=== PATIENT | female | born 1980 | race Caucasian/White ===

== ENCOUNTER → 2016-08-07 | Outpatient (CLI) | payer OTHER ==
[~2016-08-07] MED LIST: ATR25 PO; BUPRTAB51 PO; BUSP-8 PO; CHLO5CAP2 PO; FLUO20CA34 PO; FLUO20CA36 PO; FLV1 PO; FOLI1TAB7 PO; IUD PV; MULT-506 PO; MULT-589 PO; THIA100T11 PO; THM100 PO
[2016-08-10 00:50] LABS: CHLAMYDIA TRACH RNA*** NOT DETECTED (NOT DETECTED); GC (NEIS GONORRHOEAE)RNA** NOT DETECTED (NOT DETECTED)
[2016-08-13 14:06] LABS: HERPES SIMPLEX CULT SOURCE OTHER-L LABIA; HERPES SIMPLEX VIRUS CULT NOT ISOLATED (NOT ISOLATED)
== END | disposition home or self-care (01) ==
LOC: C.LABSPEC 16:14
PROVIDERS: ATTEND Physician Assistant
DX: N94.9 Unspecified condition associated with female genital organs and menstrual cycle (principal); N89.8 Other specified noninflammatory disorders of vagina; Z11.3 Encounter for screening for infections with a predominantly sexual mode of transmission

== ENCOUNTER 2016-08-14 09:51 | Inpatient (IN) | payer OTHER ==
[~2016-08-14] VITALS: Ht 167.6 cm; Wt 105.0 kg
[~2016-08-14 09:51] MED LIST changes: -ATR25 PO; -BUSP-8 PO; -FLUO20CA36 PO; -FLV1 PO; -FOLI1TAB7 PO; -MULT-506 PO; -MULT-589 PO; -THIA100T11 PO; -THM100 PO
[2016-08-14 10:50] LABS: BASO % 0.2 %; BASO ABS # 0.02 K/uL (0-0.2); COMPLETE YES; EOS % 0.1 %; HEMATOCRIT 40.9 % (37-47); IG% 0.3 %; LYMPH % 6.4 %; LYMPH ABS # 0.75 K/uL (1.2-3.4); MEAN CELL VOLUME 93.4 fL (80-100); MEAN CORPUSCULAR HEMOGLOBIN 32.6 pg (25-34); MONO % 9.5 %; NEUT % 83.5 %; PLATELET COUNT 237 K/uL (130-400); RED BLOOD COUNT 4.38 M/uL (4.2-5.4); WHITE BLOOD COUNT 11.66 K/uL (4.8-10.8)
[2016-08-14 11:14] LABS: BUN/CREATININE RATIO 7.5 (10-20); CALCIUM 9.2 mg/dl (8.5-10.1); CREATININE 0.85 mg/dl (0.60-1.20); POTASSIUM 3.5 mmol/L (3.5-5.1)
[2016-08-14 11:24] LABS: ALB/GLOB RATIO 1.4 (0.9-2); THYROID STIMULATING HORMONE 2.19 uIu/ml (0.300-4.500)
[2016-08-14 11:26] LABS: LITHIUM < 0.2 mMOL/L (0.6-1.2)
[2016-08-14] MEDS ORDERED: SODIUM CHLORIDE 0.9% 1000ML 1,000 ML IV STA (11:47)
[2016-08-14 11:59] LABS: PREG INTERNAL NEGATIVE QC NEG CLEAR BACKGROUND; PREG INTERNAL POSITIVE QC POS CONTROL LINE
[2016-08-14 12:38] LABS: BENZODIAZEPINE, URINE POS (NEG); COCAINE,URINE NEG (NEG); PHENCYCLIDINE, URINE NEG (NEG)
[2016-08-14] MEDS ORDERED: ONDANSETRON INJ 2 MG/ML 2 ML VIAL IV STA (14:23)
[2016-08-14] MEDS ORDERED: LORAZEPAM 1 MG TAB SL STA (15:50)
--- NOTE | 2016-08-14 16:21 | EMERGENCY ROOM VISIT NOTE ---
History Report prepared by Chhaya: Sneha Smith Under the Supervision of: Dr. John Cross D.O. First contact with patient: 10:27 Chief Complaint: OVERDOSE (INTENTIONAL) Stated Complaint: OVERDOSE History of Present Illness The patient is a 35 year old female who presents to the Emergency Room with complaints of a prescription drug overdose. The patient states that she is depressed and an alcoholic. She has been an alcoholic for about 11 years and believes that her alcoholism is what makes her depressed. She drinks heavily, about a fifth of liquor, every 3 days. Over the past few days, she has been taking pills that are in her house. She is not prescribed any medications. She is unsure of what the pills were or who they belonged too, although she reports that they could be her brother's. Her brother is medicated for psychiatric issues. She cannot describe what her exact intentions were of taking the pills although she states that she wants to start feeling better. She did not take the pills to try to kill herself. She took 5 of the pills a few days ago, 12 pills another day, but only 2 this morning. The patient notes that an ambulance was called this morning because her mother was concerned about her. She admits to drinking alcohol this morning. She has the Mirena and does not get her menstrual period. Denies recreational drug use. Source of History: patient Onset: [employer] Position: other (psych) Quality: other (overdose) Timing: other (episodic) Review of Systems See HPI for pertinent positives & negatives. A total of 10 systems reviewed and were otherwise negative. Past Medical & Surgical Medical Problems: (1) Alcohol addiction (2) Benign hypertension (3) Benign Hypertension (4) Calculus Of Kidney (5) Ovarian Cyst Nec/Nos Family History Diabetes mellitus FH: cancer FH: heart disease Hypertension Social History Smoking Status: Current Every Day Smoker Alcohol Use: none Drug Use: none Housing Status: lives with family Occupation Status: employed Current/Historical Medications Scheduled [Iud], 1 EA PV UD Allergies Coded Allergies: No Known Allergies (Verified , 08/14/16) Physical Exam Vital Signs Date Time Temp Pulse Resp B/P Pulse Ox O2 Delivery O2 Flow Rate FiO2 08/14/16 15:05 92 08/14/16 13:51 87 18 151/92 98 Room Air 08/14/16 11:49 90 18 125/82 98 Room Air 08/14/16 10: 36.8 98 20 139/97 99 Room Air 08/14/16 10:08 99 Physical Exam CONSTITUTIONAL/VITAL SIGNS: Reviewed / noted above. GENERAL: Non-toxic in appearance. INTEGUMENTARY: Warm, dry, and [place]. HEAD: Normocephalic. EYES: without scleral icterus or trauma. ENT/OROPHARYNX: clear and moist. LYMPHADENOPATHY/NECK: Is supple without lymphadenopathy or meningismus. RESPIRATORY: Lungs clear and equal. CARDIOVASCULAR: Regular rate and rhythm. GI/ABDOMEN: Soft and nontender. No organomegaly or pulsatile mass. No rebound or guarding. Normal bowel sounds. EXTREMITIES: Warm and well perfused. BACK: No CVA tenderness. NEUROLOGICAL: Intact without focal deficits. PSYCHIATRIC: Depressed affect. Not suicidal. MUSCULOSKELETAL: Normally developed with good muscle tone. Medical Decision & Procedures Laboratory Results 08/14/16 10:05 Red Blood Count 4.38, Mean Corpuscular Volume 93.4, Mean Corpuscular Hemoglobin 32.6, Mean Corpuscular Hemoglobin Concent 35.0, Mean Platelet Volume 10.0, Neutrophils (%) (Auto) 83.5, Lymphocytes (%) (Auto) 6.4, Monocytes (%) (Auto) 9.5, Eosinophils (%) (Auto) 0.1, Basophils (%) (Auto) 0.2, Neutrophils # (Auto) 9.73, Lymphocytes # (Auto) 0.75, Monocytes # (Auto) 1.11, Eosinophils # (Auto) 0.01, Basophils # (Auto) 0.02 08/14/16 10:05 Test 08/14/16 10:05 08/14/16 11:35 08/14/16 13:35 White Blood Count 11.66 K/uL (4.8-10.8) Red Blood Count 4.38 M/uL (4.2-5.4) Hemoglobin 14.3 g/dL (12.0-16.0) Hematocrit 40.9 % (37-47) Mean Corpuscular Volume 93.4 fL (80-100) Mean Corpuscular Hemoglobin 32.6 pg (25-34) Mean Corpuscular Hemoglobin Concent 35.0 g/dl (32-36) Platelet Count 237 K/uL (130-400) Mean Platelet Volume 10.0 fL (7.4-10.4) Neutrophils (%) (Auto) 83.5 % Lymphocytes (%) (Auto) 6.4 % Monocytes (%) (Auto) 9.5 % Eosinophils (%) (Auto) 0.1 % Basophils (%) (Auto) 0.2 % Neutrophils # (Auto) 9.73 K/uL (1.4-6.5) Lymphocytes # (Auto) 0.75 K/uL (1.2-3.4) Monocytes # (Auto) 1.11 K/uL (0.11-0.59) Eosinophils # (Auto) 0.01 K/uL (0-0.5) Basophils # (Auto) 0.02 K/uL (0-0.2) RDW Standard Deviation 44.6 fL (36.4-46.3) RDW Coefficient of Variation 13.1 % (11.5-14.5) Immature Granulocyte % (Auto) 0.3 % Immature Granulocyte # (Auto) 0.04 K/uL (0.00-0.02) Anion Gap 10.0 mmol/L (3-11) Est Creatinine Clear Calc Drug Dose 120.9 ml/min Estimated GFR () 103.6 Estimated GFR (Non- 89.4 BUN/Creatinine Ratio 7.5 (10-20) Calcium Level 9.2 mg/dl (8.5-10.1) Globulin 3.1 gm/dl (2.5-4.0) Albumin/Globulin Ratio 1.4 (0.9-2) Thyroid Stimulating Hormone (TSH) 2.190 uIu/ml (0.300-4.500) Salicylates Level mg/dl (2.8-20) Acetaminophen Level ug/ml (10-30) Mallory Level < 0.2 mMOL/L (0.6-1.2) Ethyl Alcohol mg/dL < 3.0 mg/dl (0-3) Urine Test NEG (NEG) Urine Opiates Screen NEG (NEG) Urine Methadone, Qualitative NEG (NEG) Urine Barbiturates NEG (NEG) Urine Phencyclidine (PCP) Level NEG (NEG) Ur Amphetamine/Methamphetamine NEG (NEG) MDMA (Ecstasy) Screen POS (NEG) Urine Benzodiazepines Screen POS (NEG) Urine Cocaine Metabolite NEG (NEG) Urine Marijuana (THC) NEG (NEG) Total Bilirubin 2.1 mg/dl (0.2-1) Direct Bilirubin 0.4 mg/dl (0-0.2) Aspartate Amino Transf (AST/SGOT) 14 U/L (15-37) Alanine Aminotransferase (ALT/SGPT) 14 U/L (12-78) Alkaline Phosphatase 50 U/L (45-117) Total Protein 6.6 gm/dl (6.4-8.2) Albumin 4.1 gm/dl (3.4-5.0) Laboratory results as stated above per my review. Medications Administered Medications (Trade) Dose Ordered Sig/Anju Route Start Time Stop Time Status Last Admin Dose Admin Sodium Chloride (Nss 1000ml) 1,000 ml @ 999 mls/hr Q1H1M STAT IV 08/14/16 11:47 08/14/16 12:47 DC 08/14/16 11:59 999 MLS/HR Ondansetron HCl (Zofran Inj) 4 mg NOW STAT IV 08/14/16 14:23 08/14/16 14:24 DC 08/14/16 14:46 4 MG Lorazepam (Ativan Tab) 1 mg NOW STAT SL 08/14/16 15:50 08/14/16 15:51 DC 08/14/16 15:55 1 MG ECG Indication: toxicologic Rate (beats per minute): 93 Rhythm: normal sinus Findings: no ectopy, other (no acute injury) ED Course 1029: Previous medical records were reviewed. The patient was evaluated in room A9. A complete history and physical examination was performed. 1147: Ordered NSS 1000 ml @ 999 mls/hr IV. 1423: Ordered Zofran Inj 4 mg IV. 1550: Ordered Lorazepam 1 mg SL. 1558: On reevaluation, the patient is resting comfortably. I discussed the results and findings with the patient. She verbalized agreement of the treatment plan. [facility] The patient will be evaluated for further management and care. Medical Decision Differential diagnosis: Etiologies such as mood disorder, infection, hypoglycemia, electrolyte abnormalities, cardiac sources, intracerebral event, toxicologic, neurologic, as well as others were entertained. This is a 35-year-old female who presents to the ED with a chief complaint of an overdose and depression. The patient reports that she has been drinking alcohol. She also reports that she took a couple of her brothers those. She is uncertain of what pills she took. The patient would like to be admitted for mental health reasons. She is feeling depressed. She is currently not on medication for this. Her blood work was unremarkable. Bilirubin was slightly elevated. test is negative. Toxin was positive for benzos and MDMA. Alcohol is negative. was negative. EKG shows a sinus rhythm. The patient had some mild tremors during her ED stay. She was given Ativan by mouth for this. Mental health services saw the patient and felt that she would be a good candidate for admission but felt the patient should be observed for 24 hours on the medical service first. [facility] The patient will be admitted for the observation with psychiatric consult. Consults Time Called: [phone] Consulting Physician[facility] Return[facility] Call: [phone] I discussed the case with him. The patient will be evaluated for further management. Impression Primary Impression: Depression Additional Impressions: Alcohol use Overdose Scribe Attestation The scribe's documentation has been prepared under my direction and personally reviewed by me in its entirety. I confirm that the note above accurately reflects all work, treatment, procedures, and medical decision making performed by me. Departure Information Dispostion Being Evaluated By Hospitalist Mejia Petersen M.D. (PCP) Patient Instructions [facility] Problem Qualifiers
[2016-08-14] MEDS ORDERED: CHLORDIAZEPOXIDE 25 MG CAP PO SCH (16:45)
--- NOTE | 2016-08-14 16:52 | Progress Note ---
Progress Note Date of Service Aug 14, 2016. Progress Note ATTENDING ADDENDUM care coordinated with HERSON Rees please refer to her notes for full details, I agree with her notes patient seen and examined, HERSON Rees present and witnessed entire interaction records reviewed by myself as well on exam, patient seen resting in bed, appears comfortable pleasant states she is starting to have tremors, and anxiety no hallucination denies chest pain, dyspnea, palpitations or any other symptoms expresses great enthusiasm with inpatient psych treatment VS noted and reviewed oriented x 3, not in distress, speaks in sentences with no effort nor accessory muscle use normal rate, regular rhythm, no murmurs clear breath sounds bilaterally non distended, soft, nontender no bipedal edema, erythema, warmth (+) mild hand tremors no gross neuro deficits WBC 11.6 Crea 0.85 ASSESSMENT/PLAN> 35 year old female with history of Alcoholism, presenting with depression and ingestion of unknown pills. ALCOHOL WITHDRAWAL HISTORY OF ALCOHOL ABUSE - admits to drinking liquor every 3 days last drink 2-3 days ago - denies hallucinations - start alcohol withdrawal protocol including: Librium PO taper PRN IV ativan IV fluids Thiamine DEPRESSION - evaluated by Psych - plan for inpatient psych treatment after management of alcohol withdrawal - patient agreeable to this - 1:1 observation for now INGESTION OF UNKNOWN PILLS - urine drug screen positive for MDMA, Benzo - QT mildly prolonged at 480 - monitor in Tele other diagnoses and plan of care as per HERSON Rees's notes Dillon Quinteros MD
[2016-08-14] MEDS ORDERED: MULTI-VITAMIN INFUSION INJ 10 ML, THIAMINE HCL INJ 100 MG, FoLIC ACID INJ 1 MG in SODIU... IV STA (16:55)
--- NOTE | 2016-08-14 16:58 | History and Physical ---
History & Physical Date & Time of Service: Aug 14, 2016 at 16:43 Chief Complaint: Overdose Primary Care Physician: Mejia Nuñez M.D. History of Present Illness Source: patient, clinic records, hospital records Patient seen and examined. 35 year old female with PMHx of alcohol abuse, tobacco abuse and depression presents to the ED following an intentional overdose. Patient reports she was"done with life" so she took "a lot of pills." She states she took 33 pills a few days ago but then has been taking some more every day (timeline inconsistent throughout hospital stay when speaking with different providers). She states she does not know what these pills are just that they are ones lying around her house. She states she has been drinking on top of this. She states she will drink a 5th of brien every 2-3 days. She states her last drink as 2 days ago.She states her mother was concerned and call an ambulance who brought her to the ED. She reports at this time she does not feel suicidal. She also denies homicidal ideations. She reports her first drink was at age 14 and drinking became a problem 5 or 10 years ago that she "just really likes it." She reports a stay at inpatient rehab for 22 days previously where she was on a Librium taper for withdrawal. She states she also had periods of sobriety when 5 and 10 years ago. She reports when she withdrawals she has diaphoresis, tremors and anxiety. She denies illicit drug use. She denies fevers, chills, URI symptoms, chest pain, SOB, nausea, vomiting , diarrhea, dysuria, calf pain and edema. In the ED VS are stable, wbc count is mildly elevated. Tox screen is + MDMA and + benzodiazepines. She received Ativan , IVFs and Zofran. Patient will be admitted to the internal medicine service with psychiatry consult. Past Medical/Surgical History Medical Problems: (1) Alcohol addiction Status: Chronic (2) Benign hypertension Status: Chronic Surgical Problems: (1) History of removal of ovarian cyst Status: Chronic Family History Diabetes mellitus FH: cancer FH: heart disease Hypertension Social History Smoking Status: Current Every Day Smoker Alcohol Use: heavy Drug Use: none Housing status: lives with family Occupational Status: employed Immunizations History of Influenza Vaccine: Unknown History of Tetanus Vaccine?: Unknown History of Pneumococcal: Unknown History of Hepatitis B Vaccine: Unknown Multi-Drug Resistant Organisms History of MDRO: No Allergies Coded Allergies: No Known Allergies (Verified , 08/14/16) Home Medications Scheduled [Iud], 1 EA PV UD Review of Systems See above for pertinent positives & negatives. A total of 10 systems reviewed and were otherwise negative. Physical Exam Vital Signs Date Time Temp Pulse Resp B/P Pulse Ox O2 Delivery O2 Flow Rate FiO2 08/14/16 16:24 91 18 134/88 99 Room Air 08/14/16 15:05 92 08/14/16 13:51 87 18 151/92 98 Room Air 08/14/16 11:49 90 18 125/82 98 Room Air 08/14/16 10:29 36.8 98 20 139/97 99 Room Air 08/14/16 10:08 99 General Appearance: + pertinent finding (Pleasant WD/WN 35 year old female lying in bed in NAD with mild hand tremor ) Head: normocephalic, atraumatic Eyes: PERRL, EOMI, sclerae normal ENT: hearing grossly normal, pharynx normal Neck: supple, no JVD Respiratory/Chest: chest non-tender, lungs clear, normal breath sounds, no respiratory distress, no accessory muscle use Cardiovascular: regular rate, rhythm, no edema, no gallop, no JVD, no murmur, normal peripheral pulses Abdomen/GI: normal bowel sounds, non tender, soft Back: normal inspection, no muscle spasm Extremities/Musculoskelatal: no calf tenderness, normal capillary refill, no pedal edema Neurologic/Psych: alert, oriented x 3, + pertinent finding (mild tremor, otherwise no motor or sensory deficits. Denies suicidal and homicidal ideations. ) Skin: normal color, warm/dry, no rash Lymphatic: no adenopathy Diagnostics Laboratory Results Results Past 24 Hours Test 08/14/16 10:05 08/14/16 11:35 08/14/16 13:35 08/14/16 16:30 Range/Units White Blood Count 11.66 4.8-10.8 K/uL Red Blood Count 4.38 4.2-5.4 M/uL Hemoglobin 14.3 12.0-16.0 g/dL Hematocrit 40.9 37-47 % Mean Corpuscular Volume 93.4 80-100 fL Mean Corpuscular Hemoglobin 32.6 25-34 pg Mean Corpuscular Hemoglobin Concent 35.0 32-36 g/dl Platelet Count 237 130-400 K/uL Mean Platelet Volume 10.0 7.4-10.4 fL Neutrophils (%) (Auto) 83.5 % Lymphocytes (%) (Auto) 6.4 % Monocytes (%) (Auto) 9.5 % Eosinophils (%) (Auto) 0.1 % Basophils (%) (Auto) 0.2 % Neutrophils # (Auto) 9.73 1.4-6.5 K/uL Lymphocytes # (Auto) 0.75 1.2-3.4 K/uL Monocytes # (Auto) 1.11 0.11-0.59 K/uL Eosinophils # (Auto) 0.01 0-0.5 K/uL Basophils # (Auto) 0.02 0-0.2 K/uL RDW Standard Deviation 44.6 36.4-46.3 fL RDW Coefficient of Variation 13.1 11.5-14.5 % Immature Granulocyte % (Auto) 0.3 % Immature Granulocyte # (Auto) 0.04 0.00-0.02 K/uL Sodium Level 141 136-145 mmol/L Potassium Level 3.5 3.5-5.1 mmol/L Chloride Level 106 98-107 mmol/L Carbon Dioxide Level 25 21-32 mmol/L Anion Gap 10.0 3-11 mmol/L Blood Urea Nitrogen 6 7-18 mg/dl Creatinine 0.85 0.60-1.20 mg/dl Est Creatinine Clear Calc Drug Dose 120.9 ml/min Estimated GFR () 103.6 Estimated GFR (Non- 89.4 BUN/Creatinine Ratio 7.5 10-20 Random Glucose 83 70-99 mg/dl Calcium Level 9.2 8.5-10.1 mg/dl Total Bilirubin 1.9 2.1 0.2-1 mg/dl Aspartate Amino Transf (AST/SGOT) 13 14 15-37 U/L Alanine Aminotransferase (ALT/SGPT) 18 14 12-78 U/L Alkaline Phosphatase 48 50 45-117 U/L Total Protein 7.4 6.6 6.4-8.2 gm/dl Albumin 4.3 4.1 3.4-5.0 gm/dl Globulin 3.1 2.5-4.0 gm/dl Albumin/Globulin Ratio 1.4 0.9-2 Thyroid Stimulating Hormone (TSH) 2.190 0.300-4.500 uIu/ml Salicylates Level 2.8-20 mg/dl Acetaminophen Level 10-30 ug/ml [place]ory Level < 0.2 0.6-1.2 mMOL/L Ethyl Alcohol mg/dL < 3.0 0-3 mg/dl Urine Test NEG NEG Urine Opiates Screen NEG NEG Urine Methadone, Qualitative NEG NEG Urine Barbiturates NEG NEG Urine Phencyclidine (PCP) Level NEG NEG Ur Amphetamine/Methamphetamine NEG NEG MDMA (Ecstasy) Screen POS NEG Urine Benzodiazepines Screen POS NEG Urine Cocaine Metabolite NEG NEG Urine Marijuana (THC) NEG NEG Direct Bilirubin 0.4 0-0.2 mg/dl EKG NSR incomplete RBBB, prolonged QTc 482 Impression Assessment and Plan 35 year old female presents to the ED following intentional unknown medication overdose. Also reports alcohol abuse ALCOHOL WITHDRAWAL -admit to tele -Alcohol level negative -has mild tremors at this time -Banana bag x 1 -start Librium protocol -Ativan prn withdrawal symptoms -Daily multivitamin, thiamine and folic acid supplementation -monitor closely in tele for worsening withdrawal, currently mild -seizure precautions -psychiatry consultation -CBC, PRP, Mg in AM INTENTIONAL OVERDOSE -SUICIDE ATTEMPT -Unknown medications, wanted to "be done with life" -Tox screen +MDMA, +benzodiazepine -? prolonged QTc secondary to overdose -Suicide precautions - one to one observation -psychiatry consult placed for further input PROLONGED QTc -482 -? secondary to unknown medication overdose -check Mg -monitor in tele TOBACCO ABUSE -Cessation counseling given DVT PROPHYLAXIS: SCDs CODE STATUS: FULL CODE DISPO:In my clinical judgment this beneficiary meets acute admission criteria, established by [facility], that includes being hospitalized through two midnights. Patient seen in collaboration with Dr. Quinteros VTE Prophylaxis VTE Risk Assessment Done? Y/N: Yes Risk Level: Low
[2016-08-14 18:38] VITALS: O2SAT 100
[2016-08-14] MEDS: LORAZEPAM 2 MG/ML 1 ML VIAL IV PRN (18:48)
[2016-08-14 20:00] VITALS: BP 130/71; PULSE 87; TEMP 36.8; O2SAT 99
[2016-08-14] MEDS: CHLORDIAZEPOXIDE 50MG 1ST DOSE PO SCH (20:32)
[2016-08-14] MEDS: LORAZEPAM INJ 1 MG in SYRINGE 0.5 ML IV PRN ×2 (20:33→22:12)
[2016-08-14] MEDS: SODIUM CHLORIDE 0.9% 1000ML 1,000 ML IV SCH (20:33)
[2016-08-14 21:14] VITALS: BP 130/71; PULSE 87; TEMP 36.8; Ht 167.6 cm; Wt 105.0 kg
[2016-08-14] MEDS: ACETAMINOPHEN 325 MG TAB PO PRN (22:48)
[2016-08-15] VITALS (7 sets, daily range): BP systolic 94–143; BP diastolic 56–97; PULSE 76–94; TEMP 36.6–37.1; O2SAT 97–99
[2016-08-15] MEDS: CHLORDIAZEPOXIDE 50MG 1ST DOSE PO SCH ×3 (02:17→13:44)
[2016-08-15] MEDS: SODIUM CHLORIDE 0.9% 1000ML 1,000 ML IV SCH ×3 (02:18→22:12)
[2016-08-15 05:24] LABS: HEMATOCRIT 37.7 % (37-47); MEAN CELL VOLUME 92.4 fL (80-100); MEAN CORPUSCULAR HEMOGLOBIN 31.9 pg (25-34); MEAN CORPUSCULAR HGB CONC 34.5 g/dl (32-36); MEAN PLATELET VOLUME 9.9 fL (7.4-10.4); PLATELET COUNT 172 K/uL (130-400); RED BLOOD COUNT 4.08 M/uL (4.2-5.4); WHITE BLOOD COUNT 7.86 K/uL (4.8-10.8)
[2016-08-15] MEDS: LORAZEPAM INJ 1 MG in SYRINGE 0.5 ML IV PRN ×2 (05:45→22:24)
[2016-08-15 05:50] LABS: BUN/CREATININE RATIO 6.9 (10-20); CALCIUM 8.1 mg/dl (8.5-10.1); CREATININE 0.76 mg/dl (0.60-1.20); MAGNESIUM 2.3 mg/dl (1.8-2.4); POTASSIUM 3.5 mmol/L (3.5-5.1)
[2016-08-15] MEDS: MULTIVITAMIN TAB PO SCH (07:53)
[2016-08-15] MEDS: THIAMINE HCL 100 MG TAB PO SCH (07:53)
[2016-08-15] MEDS ORDERED: DOCUSATE SODIUM 100 MG CAP PO ONE (10:00)
[2016-08-15] MEDS ORDERED: GABAPENTIN 600 MG TAB PO SCH (10:00)
[2016-08-15] MEDS ORDERED: GABAPENTIN 1200MG LOADING DOSE PO SCH (11:00)
--- NOTE | 2016-08-15 12:13 | CONSULTATION REPORT ---
DATE OF CONSULTATION: 08/15/2016 DATE OF CONSULTATION: 08/15/2016. IDENTIFYING DATA: Kaleigh Hanley is a 35-year-old woman from [place], [place], who is currently admitted to the medical floor with alcohol withdrawal syndrome, depression, status post overdose attempt. Information is gathered from the patient and considered to be reliable. CHIEF COMPLAINT: "I tried to kill myself." HISTORY OF PRESENT ILLNESS: Kaleigh Hanley is a 35-year-old woman who is currently under a great deal of stress. She is in the process of going through the divorce and as part of the picture had to sell her home and move in with her parents 6 months ago. She has 2 sons, ages 5 and 10. She indicates that living with them has been "terrible" and admits that her drinking has been part of the problem. She says that her parents drink and therefore alcohol is available in their home which makes it difficult for her to stop. She says that she has been intermittently suicidal, but generally only when she is drinking. She admits that she overdosed on unknown pills last week and again taking 33 pills of Wellbutrin and other unknown pills several days ago and continuing to take more in subsequent days. She admits that her drinking has been a problem, consuming a fifth of brien every 2-3 days. Today, she says that she continues to feel depressed, but not actively suicidal. She reports that her sleep recently has been impaired getting only 4 hours of sleep per night, being up and down through most of the night. Her appetite has been down, but she admits to substituting alcohol for her calories and ate virtually nothing for the 4 days prior to admission. She reports a pattern of chronic anxiety with occasional panic attacks that can be triggered by arguing with her mother or "anything." She does not normally experience hallucinations of any time, but since being without alcohol she is having visual disturbances, twilight in nature in which she wakes up from resting and believes that she is smoking a cigarette or sees her boyfriend Sean in the room. She denies any history of self-injurious behaviors. She denies any history of eating disordered behaviors. She denies any discrete episodes of euphoric mood, sleeplessness or pleasure seeking behaviors that would be congruent with bipolar disorder. CURRENT MEDICATIONS: 1. Neurontin protocol for withdrawal. 2. Librium protocol for withdrawal. 3. Senokot 8.6 mg q.a.m. 4. Colace 100 mg b.i.d. 5. Folic acid 1 mg q.a.m. 6. Thiamine 100 mg q.a.m. 7. Multivite 1 tab q.a.m. PAST PSYCHIATRIC HISTORY: The patient denies that she has ever seen a psychiatric professional. She has never been hospitalized for mental health reasons. Prior to last week she had not made a suicide attempt. PRIOR MEDICATION TRIALS: 1. Wellbutrin. 2. Prozac. ACCESS TO GUNS: Denies. ALLERGIES: NKDA. PAST MEDICAL HISTORY: 1. Benign hypertension. 2. Denies history for head injury or seizures. FAMILY HISTORY: Positive for brother with schizophrenia, mother and father with alcohol abuse issues. There is no family history for suicide. Medically, there is positive family history for heart disease, hypertension, diabetes, and cancer. SUBSTANCE USE HISTORY: In the last year, the patient endorses heavy drinking as much as a fifth of alcohol every 3 days, usually brien. She has been in rehab before at [facility] 2 years ago. She stayed for 22 days and was able to maintain sobriety for 3 weeks after discharge. She denies any legal consequences as a result of substances. She denies the use of street drugs now or at any point in the past. PERSONAL HISTORY: The patient currently resides with her parents in [place]. She has 1 brother. 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 She is a high school graduate and has some education at [employer]. She is and recently had a breakup with a boyfriend. She has 2 children, ages 5-10. She denies legal concerns. Psychological trauma history is denied. MENTAL STATUS EXAMINATION: A 35-year-old woman with short dark hair, dressed in hospital gown, lying in her hospital bed. She is awakened from sleep for the interview and is alert and cooperative. Eye contact is good. Motor behavior is unremarkable, no visible tremors. Speech is of normal rate, volume, and tone. Affect is flat. Mood is depressed. Thought process is organized and goal directed. She denies thought disorder in the form of delusions, but is having withdrawal seizures including visual images of seeing her boyfriend in the room. Today, she is fully oriented. Her memory functions appear to be intact per conversation. Fund of knowledge is intact. Intelligence is estimated to be average. Insight and judgment are currently impaired. VITAL SIGNS: Temp 36.9, pulse 89, respirations 20, blood pressure 94/56, pulse ox 99% on room air. LABORATORIES: 1. CBC -- notable for low RBCs 4.08. 2. Chem profile -- notable for chloride 110, calcium low at 8.1, total bilirubin elevated at 2.2. Direct bilirubin elevated at 0.3. 3. TSH -- within normal limits at 2.190. 4. Toxicology -- positive for benzodiazepines and MDMA which is usually a false positive. Alcohol was negative. 5. Urine test -- negative. REVIEW OF SYSTEMS: Positive for complaints of visual disturbances, fatigue, recent tremors, depression. PHYSICAL EXAMINATION: As per Dary Rees PA-C. IMPRESSION: A 35-year-old woman admitted to the hospital following an overdose attempt and alcohol withdrawal. She has not received any ____ mental health treatment in the past, although has been in rehab 2 years ago for her alcohol dependence. Our primary goal is to get her medically cleared from her alcohol withdrawal. I agree with the use of Neurontin and Librium protocol with AWSS protocol for alcohol withdrawal. I have recommended that she receive inpatient mental health treatment when medically cleared and at this point she is willing to do that, although does hedge at some times saying she would rather pursue outpatient because of the need to be with her children. We will continue to address this with her. There is a backup 302 petitioners statement on the chart that could be used in the event she refuses voluntary treatment. We will not recommend any antidepressants at this point until she has had a chance to clear medically. The patient should not be allowed to leave against medical advice without being evaluated by psychiatry first. DIAGNOSES: 1. Alcohol dependence. 2. Depressive disorder, not otherwise specified. 3. Hypertension. PLAN: Has been reviewed with Dr. Selam Yepez. 1. Alcohol dependence and withdrawal. -- Agree with AWSS protocol using gabapentin and Librium protocol. -- Will likely recommend inpatient rehab after psychiatrically stable. 2. Depressive disorder, not otherwise specified. Differential includes substance induced mood disorder, major depressive disorder. -- Will hold on medication recommendations until medically cleared. -- Recommend inpatient mental health treatment. -- The patient should not be allowed to leave against medical advice without being seen by psychiatry. 3. Hypertension. -- As per the medical team. We thank you for allowing us to participate in this woman's care.
[2016-08-15] MEDS: LORAZEPAM 2 MG/ML 1 ML VIAL IV PRN ×2 (13:38→18:48)
[2016-08-15] MEDS: ACETAMINOPHEN 325 MG TAB PO PRN (13:38)
[2016-08-15] MEDS: GABAPENTIN 600MG Q6H DOSE PO SCH ×2 (16:23→21:15)
--- NOTE | 2016-08-15 17:00 | Progress Note ---
Subjective Date of Service: Aug 15, 2016. Subjective Pt evaluation today including: conversation w/ patient, physical exam, lab review, review of studies, conversation w/ contamination consultant, review of inpatient medication list Saw/examined the patient in room 287 She states that she intentionally overdose on multiple medications - unknown which medications though it did include Wellbutrin Tells me she is supposed to take Wellbutrin, Prozac and Librium at home, but does not knows she has an alcohol abuse problem Wants to go to [address] [place] [address] mental health unit to find help for depression, suicidal ideation, and alcohol/drug abuse currently feels fine - was hallucinating overnight, but no longer; no anxiety, tachycardia, etc. Problem List Medical Problems: (1) Alcohol use Status: Acute (2) Depression Status: Acute (3) Hand laceration Status: Acute (4) Multiple contusions Status: Acute (5) Overdose Status: Acute Review of Systems Respiratory: No shortness of breath Cardiac: No chest pain Psychiatric: + anxiety, + depression symptoms, + insomnia, + problem reported ( hallucinations), + see HPI, + substance abuse Medications Current Inpatient Medications Medications (Trade) Dose Ordered Sig/Anju Route Start Time Stop Time Status Last Admin Dose Admin Acetaminophen (Tylenol Tab) 650 mg Q4H PRN PO 08/14/16 16:30 09/13/16 16:29 08/15/16 13:38 650 MG Folic Acid (Folvite Tab) 1 mg QAM PO 08/15/16 09:00 09/14/16 08:59 08/15/16 07:53 1 MG Thiamine HCl (Vitamin B-1 Tab) 100 mg QAM PO 08/15/16 09:00 09/14/16 08:59 08/15/16 07:53 100 MG Multivitamins 1 tab 1 tab QAM PO 08/15/16 09:00 09/14/16 08:59 08/15/16 07:53 1 TAB Sodium Chloride (Nss 1000ml) 1,000 ml @ 100 mls/hr Q10H IV 08/14/16 16:39 09/13/16 16:38 08/15/16 12:52 100 MLS/HR Lorazepam (Ativan Inj) 1 mg Q1H PRN IV 08/14/16 16:45 09/13/16 16:44 08/15/16 13:38 1 MG Chlordiazepoxide (Librium Cap) 50 mg Q8H PO 08/15/16 22:00 08/16/16 14:01 Chlordiazepoxide (Librium Cap) 25 mg Q8H PO 08/16/16 22:00 08/17/16 14:01 Chlordiazepoxide 10 mg 10 mg Q12H PO 08/18/16 06:00 08/18/16 18:01 Lorazepam/Syringe (Ativan Inj/ Syringe) 1 ml @ 1 mls/min Q1H PRN IV 08/14/16 20:30 09/13/16 20:29 08/15/16 05:45 1 MLS/MIN Docusate Sodium (coLACE CAP) 100 mg BID PO 08/15/16 21:00 09/14/16 20:59 Senna (Senokot Tab) 8.6 mg QAM PO 08/16/16 09:00 09/15/16 08:59 Gabapentin (Neurontin Tab) 600 mg Q6H PO 08/15/16 16:00 08/15/16 22:01 08/15/16 16:23 600 MG Gabapentin (Neurontin Tab) 600 mg Q8H PO 08/16/16 06:00 08/16/16 22:01 Gabapentin (Neurontin Tab) 600 mg Q12H PO 08/17/16 09:00 08/17/16 21:01 Gabapentin (Neurontin Tab) 600 mg Q24H PO 08/18/16 09:00 08/18/16 09:01 Objective Vital Signs Date Time Temp Pulse Resp B/P Pulse Ox O2 Delivery O2 Flow Rate FiO2 08/15/16 14:58 37.1 94 18 143/97 98 Room Air 08/15/16 12:00 Room Air 08/15/16 11:57 36.6 77 18 136/88 99 Room Air 08/15/16 08:00 Room Air 08/15/16 07:57 36.9 89 20 94/56 99 Room Air 08/15/16 04:00 Room Air 08/15/16 04:00 36.9 86 18 127/84 99 Room Air 08/15/16 00:33 36.9 76 20 128/84 99 Room Air 08/15/16 00:22 Room Air 08/14/16 21:14 36.8 87 18 130/71 Room Air 08/14/16 20:00 36.8 87 18 130/71 99 Room Air 08/14/16 18:38 94 18 131/86 100 Room Air Physical Exam General Appearance: no apparent distress, + pertinent finding (mild tremulousness at baseline) Respiratory/Chest: lungs clear, normal breath sounds, no respiratory distress, no accessory muscle use Cardiovascular: regular rate, rhythm, no edema, no murmur Abdomen: normal bowel sounds, non tender, soft Extremities: normal inspection, no pedal edema Laboratory Results Last 24 Hours Test 08/15/16 04:46 White Blood Count 7.86 K/uL Red Blood Count 4.08 M/uL Hemoglobin 13.0 g/dL Hematocrit 37.7 % Mean Corpuscular Volume 92.4 fL Mean Corpuscular Hemoglobin 31.9 pg Mean Corpuscular Hemoglobin Concent 34.5 g/dl RDW Standard Deviation 43.6 fL RDW Coefficient of Variation 13.0 % Platelet Count 172 K/uL Mean Platelet Volume 9.9 fL Sodium Level 142 mmol/L Potassium Level 3.5 mmol/L Chloride Level 110 mmol/L Carbon Dioxide Level 24 mmol/L Anion Gap 8.0 mmol/L Blood Urea Nitrogen 5 mg/dl Creatinine 0.76 mg/dl Est Creatinine Clear Calc Drug Dose 128.3 ml/min Estimated GFR () 118.6 Estimated GFR (Non- 102.3 BUN/Creatinine Ratio 6.9 Random Glucose 91 mg/dl Calcium Level 8.1 mg/dl Magnesium Level 2.3 mg/dl Total Bilirubin 2.2 mg/dl Direct Bilirubin 0.3 mg/dl Assessment and Plan This is a 35 year old female with PMH of depression, alcohol and tobacco abuse presents with intentional overdose Intentional Overdose Suicidal Attempt patient intentionally took multiple pills; unknown which ones patient is supposed to take Wellbutrin, Prozac - but does not take these is willing to start medications for depression plan is for her to go to the Mental Health Unit after she is medically stable EKG obtained this morning shows a QTc ~ 450; improving from previous one Alcohol Abuse; Withdrawal Symptoms monitoring for DTs currently on Librium protocol, appreciate psych input started gabapentin as well Ativan PRN for anxiety, withdrawal symptoms +hallucinations on the night of 08/14; none since DVT ppx SCDs FULL CODE
[2016-08-15] MEDS: DOCUSATE SODIUM 100 MG CAP PO SCH (21:15)
[2016-08-15] MEDS: CHLORDIAZEPOXIDE 50MG Q8H DOSE PO SCH (21:16)
[2016-08-16] MEDS: LORAZEPAM 2 MG/ML 1 ML VIAL IV PRN ×3 (02:09→11:03)
[2016-08-16] MEDS: GABAPENTIN 600MG Q8H DOSE PO SCH ×2 (05:33→14:52)
[2016-08-16] MEDS: CHLORDIAZEPOXIDE 50MG Q8H DOSE PO SCH ×2 (05:33→15:02)
[2016-08-16 07:31] VITALS: BP 123/79; PULSE 68; TEMP 36.4; O2SAT 98
[2016-08-16] MEDS: MULTIVITAMIN TAB PO SCH (07:53)
[2016-08-16] MEDS: THIAMINE HCL 100 MG TAB PO SCH (07:54)
[2016-08-16] MEDS: SODIUM CHLORIDE 0.9% 1000ML 1,000 ML IV SCH (07:55)
[2016-08-16 07:57] LABS: HEMATOCRIT 38.8 % (37-47); MEAN CORPUSCULAR HEMOGLOBIN 31.7 pg (25-34); MEAN PLATELET VOLUME 10.1 fL (7.4-10.4); PLATELET COUNT 166 K/uL (130-400); RED BLOOD COUNT 4.17 M/uL (4.2-5.4); WHITE BLOOD COUNT 5.97 K/uL (4.8-10.8)
[2016-08-16 08:28] LABS: BUN/CREATININE RATIO 5.8 (10-20); CALCIUM 8.6 mg/dl (8.5-10.1); CREATININE 0.81 mg/dl (0.60-1.20); MAGNESIUM 2.1 mg/dl (1.8-2.4); POTASSIUM 3.8 mmol/L (3.5-5.1)
[2016-08-16] MEDS: DOCUSATE SODIUM 100 MG CAP PO SCH (08:44)
[2016-08-16] MEDS ORDERED: SENNA 8.6 MG TAB PO SCH (09:00)
[2016-08-16 11:27] VITALS: BP 132/86; PULSE 86; TEMP 36.8; O2SAT 99
[2016-08-16 14:41] VITALS: BP 122/82; PULSE 89; TEMP 36.9; O2SAT 97
--- NOTE | 2016-08-16 15:04 | Psychiatric Progress Notes ---
Psychiatric Progress Note Date of Service Aug 16, 2016. Notes ID: Patient reviewed with liaison nurse. Initial consult by KALA Aguilera reviewed. CC: "I still feel a bit funny" HPI: patient describes illusions related to her medication, misperceiving sounds going on around her as her mother cooking breakfast for example. She was able to eat breakfast and is ambulating to the bathroom. Tremors are minimal and decreased. ROS: tremor improved, gait improving MSE: alert, depressed, affect calm currently, thoughts organized, denies SI currently on medical floor but clearly states suicide attempt and not able to safety contract for discharge Imp: as per initial consult Plan: 201 when medically cleared (patient remains agreeable), 3S if bed still available. Patient reviewed with Dr. Cloud. VSS.
--- NOTE | 2016-08-16 15:14 | Progress Note ---
Subjective Date of Service: Aug 16, 2016. Subjective Pt evaluation today including: conversation w/ patient, physical exam, lab review, review of studies, review of inpatient medication list Saw/examined the patient in room 287 No problems/issues to note; +/- hallucinations at night, though doing fine now, no acute anxiety/distress Problem List Medical Problems: (1) Alcohol use Status: Acute (2) Depression Status: Acute (3) Hand laceration Status: Acute (4) Multiple contusions Status: Acute (5) Overdose Status: Acute Review of Systems Neurologic: No balance problems Psychiatric: + substance abuse, No anxiety, No depression symptoms, No insomnia Medications Current Inpatient Medications Medications (Trade) Dose Ordered Sig/Anju Route Start Time Stop Time Status Last Admin Dose Admin Acetaminophen (Tylenol Tab) 650 mg Q4H PRN PO 08/14/16 16:30 09/13/16 16:29 08/15/16 13:38 650 MG Folic Acid (Folvite Tab) 1 mg QAM PO 08/15/16 09:00 09/14/16 08:59 08/16/16 07:54 1 MG Thiamine HCl (Vitamin B-1 Tab) 100 mg QAM PO 08/15/16 09:00 09/14/16 08:59 08/16/16 07:54 100 MG Multivitamins 1 tab 1 tab QAM PO 08/15/16 09:00 09/14/16 08:59 08/16/16 07:53 1 TAB Sodium Chloride (Nss 1000ml) 1,000 ml @ 100 mls/hr Q10H IV 08/14/16 16:39 09/13/16 16:38 08/16/16 07:55 100 MLS/HR Lorazepam (Ativan Inj) 1 mg Q1H PRN IV 08/14/16 16:45 09/13/16 16:44 08/16/16 11:03 1 MG Chlordiazepoxide (Librium Cap) 25 mg Q8H PO 08/16/16 22:00 08/17/16 14:01 Chlordiazepoxide 10 mg 10 mg Q12H PO 08/18/16 06:00 08/18/16 18:01 Lorazepam/Syringe (Ativan Inj/ Syringe) 1 ml @ 1 mls/min Q1H PRN IV 08/14/16 20:30 09/13/16 20:29 08/15/16 22:24 1 MLS/MIN Docusate Sodium (coLACE CAP) 100 mg BID PO 08/15/16 21:00 09/14/16 20:59 08/16/16 08:44 100 MG Senna (Senokot Tab) 8.6 mg QAM PO 08/16/16 09:00 09/15/16 08:59 08/16/16 07:55 8.6 MG Gabapentin (Neurontin Tab) 600 mg Q8H PO 08/16/16 06:00 08/16/16 22:01 08/16/16 14:52 600 MG Gabapentin (Neurontin Tab) 600 mg Q12H PO 08/17/16 09:00 08/17/16 21:01 Gabapentin (Neurontin Tab) 600 mg Q24H PO 08/18/16 09:00 08/18/16 09:01 Objective Vital Signs Date Time Temp Pulse Resp B/P Pulse Ox O2 Delivery O2 Flow Rate FiO2 08/16/16 14:41 36.9 89 20 122/82 97 Room Air 08/16/16 11:27 36.8 86 18 132/86 99 Room Air 08/16/16 08:00 Room Air 08/16/16 07:31 36.4 68 20 123/79 98 Room Air 08/16/16 04:00 Room Air 08/16/16 00:00 Room Air 08/15/16 23:02 36.9 78 20 115/76 98 Room Air 08/15/16 20:00 Room Air 08/15/16 19:03 36.7 84 20 128/82 97 Room Air 08/15/16 16:00 Room Air Physical Exam General Appearance: no apparent distress Respiratory/Chest: lungs clear, normal breath sounds, no respiratory distress, no accessory muscle use Cardiovascular: regular rate, rhythm, no edema, no murmur Neurologic/Psychiatric: no motor/sensory deficits, alert, normal mood/affect Laboratory Results Last 24 Hours Test 08/16/16 07:45 White Blood Count 5.97 K/uL Red Blood Count 4.17 M/uL Hemoglobin 13.2 g/dL Hematocrit 38.8 % Mean Corpuscular Volume 93.0 fL Mean Corpuscular Hemoglobin 31.7 pg Mean Corpuscular Hemoglobin Concent 34.0 g/dl RDW Standard Deviation 44.2 fL RDW Coefficient of Variation 13.0 % Platelet Count 166 K/uL Mean Platelet Volume 10.1 fL Sodium Level 142 mmol/L Potassium Level 3.8 mmol/L Chloride Level 109 mmol/L Carbon Dioxide Level 25 mmol/L Anion Gap 8.0 mmol/L Blood Urea Nitrogen 5 mg/dl Creatinine 0.81 mg/dl Est Creatinine Clear Calc Drug Dose 119.8 ml/min Estimated GFR () 109.8 Estimated GFR (Non- 94.8 BUN/Creatinine Ratio 5.8 Random Glucose 109 mg/dl Calcium Level 8.6 mg/dl Magnesium Level 2.1 mg/dl Assessment and Plan This is a 35 year old female with PMH of depression, alcohol and tobacco abuse presents with intentional overdose Intentional Overdose Suicidal Attempt 08/16 patient is stable for discharge today to [facility]HU 08/15 patient intentionally took multiple pills; unknown which ones patient is supposed to take Wellbutrin, Prozac - but does not take these is willing to start medications for depression plan is for her to go to the Mental Health Unit after she is medically stable EKG obtained this morning shows a QTc ~ 450; improving from previous one Alcohol Abuse; Withdrawal Symptoms monitoring for DTs currently on Librium protocol, appreciate psych input started gabapentin as well Ativan PRN for anxiety, withdrawal symptoms +hallucinations on the night of 08/14; none since DVT ppx SCDs FULL CODE
[2016-08-16] MEDS ORDERED: FLV1 PO (15:17)
[2016-08-16] MEDS ORDERED: MULT-589 PO (15:17)
[2016-08-16] MEDS ORDERED: THM100 PO (15:17)
--- NOTE | 2016-08-16 15:19 | Discharge Instructions ---
Discharge Instructions Date of Service Aug 16, 2016. Admission Reason for Admission: Alcohol Withdrawal, Overdose Discharge Discharge Diagnosis / Problem: Intentional Drug Overdose, Suicidal Attempt, Alcohol Abuse/Withdrawal Discharge Goals Goal(s): Decrease discomfort, Improve function Activity Recommendations Activity Limitations: resume your previous activity . Instructions / Follow-Up Instructions / Follow-Up To be discharged to mental health unit Continue Thiamine, Folate, Multivitamin Gabapentin protocol for alcohol withdrawal symptoms Current Hospital Diet Patient's current hospital diet: Regular Diet Discharge Diet Recommended Diet: Regular Diet Pending Studies Studies pending at discharge: no Medical Emergencies . Who to Call and When: Medical Emergencies: If at any time you feel your situation is an emergency, please call 911 immediately. . Non-Emergent Contact Non-Emergency issues call your: Primary Care Provider . . "Provider Documentation" section prepared by Stoo Cloud. VTE Core Measure Inpt VTE Proph given/why not?: SCD's
--- NOTE | 2016-08-16 15:25 | Discharge Summary ---
Discharge Summary Date of Service Aug 16, 2016. Discharge Summary Admission Date: Aug 14, 2016 at 16:29 Discharge Date: Aug 16, 2016 Discharge Disposition: Acute care facility Principal Diagnosis: Intentional Drug Overdose Suicide Attempt Alcohol Abuse/Withdrawal Symptoms Medication Reconciliation New Medications: Folic Acid (Folic Acid) 1 Mg Tab 1 MG PO QAM for 30 Days, #30 TAB Multivitamins (Daily Bharat) 1 Tab Tab 1 TAB PO QAM for 30 Days, #30 TAB Thiamine HCl (Vitamin B-1) 100 Mg Tab 100 MG PO QAM for 30 Days, #30 TAB Continued Medications: [Iud] () 1 EA PV UD Admission Information HPI (per Admitting provider): Patient seen and examined. 35 year old female with PMHx of alcohol abuse, tobacco abuse and depression presents to the ED following an intentional overdose. Patient reports she was"done with life" so she took "a lot of pills." She states she took 33 pills a few days ago but then has been taking some more every day (timeline inconsistent throughout hospital stay when speaking with different providers). She states she does not know what these pills are just that they are ones lying around her house. She states she has been drinking on top of this. She states she will drink a 5th of brien every 2-3 days. She states her last drink as 2 days ago.She states her mother was concerned and call an ambulance who brought her to the ED. She reports at this time she does not feel suicidal. She also denies homicidal ideations. She reports her first drink was at age 14 and drinking became a problem 5 or 10 years ago that she "just really likes it." She reports a stay at inpatient rehab for 22 days previously where she was on a Librium taper for withdrawal. She states she also had periods of sobriety when 5 and 10 years ago. She reports when she withdrawals she has diaphoresis, tremors and anxiety. She denies illicit drug use. She denies fevers, chills, URI symptoms, chest pain, SOB, nausea, vomiting , diarrhea, dysuria, calf pain and edema. In the ED VS are stable, wbc count is mildly elevated. Tox screen is + MDMA and + benzodiazepines. She received Ativan , IVFs and Zofran. Patient will be admitted to the internal medicine service with psychiatry consult. Physical Exam (per Admitting): General Appearance: + pertinent finding (Pleasant WD/WN 35 year old female lying in bed in NAD with mild hand tremor ) Head: normocephalic, atraumatic Eyes: PERRL, EOMI, sclerae normal ENT: hearing grossly normal, pharynx normal Neck: supple, no JVD Respiratory/Chest: chest non-tender, lungs clear, normal breath sounds, no respiratory distress, no accessory muscle use Cardiovascular: regular rate, rhythm, no edema, no gallop, no JVD, no murmur , normal peripheral pulses Abdomen/GI: normal bowel sounds, non tender, soft Back: normal inspection, no muscle spasm Extremities/Musculoskelatal: no calf tenderness, normal capillary refill, no pedal edema Neurologic/Psych: alert, oriented x 3, + pertinent finding (mild tremor, otherwise no motor or sensory deficits. Denies suicidal and homicidal ideations. ) Skin: normal color, warm/dry, no rash Lymphatic: no adenopathy Hospital Course This is a 35 year old female with PMH of depression, alcohol and tobacco abuse presents with intentional overdose Intentional Overdose Suicidal Attempt 08/16 patient is stable for discharge today to [facility]HU 08/15 patient intentionally took multiple pills; unknown which ones patient is supposed to take Wellbutrin, Prozac - but does not take these is willing to start medications for depression plan is for her to go to the Mental Health Unit after she is medically stable EKG obtained this morning shows a QTc ~ 450; improving from previous one Alcohol Abuse; Withdrawal Symptoms monitoring for DTs currently on Librium protocol, appreciate psych input started gabapentin as well Ativan PRN for anxiety, withdrawal symptoms +hallucinations on the night of 08/14; none since DVT ppx SCDs FULL CODE Total time spent on discharge = 25 minutes This includes examination of the patient, discharge planning, medication reconciliation, and communication with other providers. Discharge Instructions To be discharged to mental health unit Continue Thiamine, Folate, Multivitamin Gabapentin protocol for alcohol withdrawal symptoms
[2016-08-16 15:51] VITALS: BP 122/82; PULSE 89; TEMP 36.9; O2SAT 97
[2016-08-16] MEDS ORDERED: THIA100T11 PO (18:03)
[2016-08-16] MEDS ORDERED: MULT-506 PO (18:03)
[2016-08-16] MEDS ORDERED: FOLI1TAB7 PO (18:03)
[2016-08-16] MEDS ORDERED: BUPRTAB51 PO (18:05)
[2016-08-16] MEDS ORDERED: CHLORDIAZEPOXIDE 25MG Q8H DOSE PO SCH (22:00)
[2016-08-17] MEDS ORDERED: GABAPENTIN 600MG Q12H DOSE PO SCH (09:00)
[2016-08-18] MEDS ORDERED: CHLORDIAZEPOXIDE 10MG Q12H DOSE PO SCH (06:00)
[2016-08-18] MEDS ORDERED: GABAPENTIN 600MG X1 DOSE PO SCH (09:00)
[2016-08-19 11:38] LABS: HYDROXYETHYLFLURAZEPAM CONF NEGATIVE NG/ML (CUTOFF=50); HYDROXYMIDAZOLAM NEGATIVE NG/ML (CUTOFF=50); HYDROXYTRIAZOLAM CONF NEGATIVE NG/ML (CUTOFF=50); TEMAZEPAM CONF NEGATIVE NG/ML (CUTOFF=50)
== END 2016-08-16 17:32 | DRG 881 ==
LOC: ENRESERVDT → ENRESERVTM → EDBD 09:51 → C.EDA 09:52 → C.MED 16:29
PROVIDERS: ADMIT Internal Medicine; ATTEND Family Medicine
DX: F32.9 Major depressive disorder, single episode, unspecified (principal); F10.239 Alcohol dependence with withdrawal, unspecified; R45.851 Suicidal ideations; T50.902A Poisoning by unspecified drugs, medicaments and biological substances, intentional self-harm, initial encounter; F17.210 Nicotine dependence, cigarettes, uncomplicated; I10 Essential (primary) hypertension; I45.81 Long QT syndrome

== ENCOUNTER 2016-08-16 17:40 | Inpatient (IN) | payer OTHER ==
[~2016-08-16] VITALS: Ht 175.3 cm; Wt 105.0 kg
[~2016-08-16 17:40] MED LIST changes: -BUPRTAB51 PO; -CHLO5CAP2 PO; -FLUO20CA34 PO; +FLV1 PO; +MULT-589 PO; +THM100 PO
[2016-08-16] MEDS ORDERED: FOLI1TAB7 PO (18:03)
[2016-08-16] MEDS ORDERED: MULT-506 PO (18:03)
[2016-08-16] MEDS ORDERED: THIA100T11 PO (18:03)
[2016-08-16] MEDS ORDERED: BUPRTAB51 PO (18:05)
[2016-08-16 18:14] VITALS: BP 124/82; PULSE 87; TEMP 36.4; Ht 175.3 cm; Wt 105.0 kg
[2016-08-16] MEDS ORDERED: BISMUTH SUBSALICYLATE PER ML OMNICELL CHARGE PO PRN (18:30)
[2016-08-16] MEDS ORDERED: ACETAMINOPHEN 325 MG TAB PO PRN (18:30)
[2016-08-16] MEDS ORDERED: SODIUM CHLORIDE 0.65% NA SOLN 45 ML (OCEAN) PRN (18:30)
[2016-08-16] MEDS ORDERED: hydrOXYzine HCL 25 MG TAB PO PRN (18:30)
[2016-08-16] MEDS ORDERED: ALUMINUM/MAGNESIUM SUSP 30 ML UDC PO PRN (18:30)
[2016-08-16] MEDS ORDERED: GABAPENTIN 800 MG TAB PO SCH (19:15)
[2016-08-16] MEDS ORDERED: LORAZEPAM 1 MG TAB PO PRN (19:15)
[2016-08-16 19:57] VITALS: BP 137/89; PULSE 89; TEMP 36.7
[2016-08-16] MEDS ORDERED: NICOTINE 7 MG/24 HR TDSY TD ONE (21:00)
[2016-08-16] MEDS ORDERED: GABAPENTIN 400 MG CAP PO SCH (22:00)
[2016-08-16] MEDS: hydrOXYzine HCL 25 MG TAB PO PRN (22:38)
[2016-08-17 00:32] VITALS: BP 124/80; PULSE 72; TEMP 36.7
[2016-08-17 06:50] VITALS: BP_SYST 129; BP_SYST 131; BP_DIAS 87; BP_DIAS 88; PULSE 78; PULSE 91; TEMP 36.5
[2016-08-17 08:57] VITALS: BP 116/75; PULSE 69; TEMP 36.8
[2016-08-17] MEDS ORDERED: BuPROPion XL 300 MG TABCR PO SCH (09:00)
[2016-08-17] MEDS: MULTIVITAMIN TAB PO SCH (09:15)
[2016-08-17] MEDS: GABAPENTIN 400 MG CAP PO SCH ×2 (09:15→21:19)
[2016-08-17] MEDS: THIAMINE HCL 100 MG TAB PO SCH (09:15)
[2016-08-17] MEDS: NICOTINE 7 MG/24 HR TDSY TD SCH (09:20)
--- NOTE | 2016-08-17 10:33 | Psychiatric History & Physical ---
History Date of Service Aug 17, 2016. Identifying Data Kaleigh Hanley is a 35-year-old female who currently lives in [place]. Kaleigh Hanley was admitted on a 201 voluntary commitment. Patient is admitted from transfer from the medical floor following an OD attempt and medical management of ETOH withdrawal. Chief Complaint "I'm ready for this to work". History of Present Illness Kaleigh presented to the ED on 08/14/16 after taking 33 Wellbutrin over the course of a few day and "other pills" as a suicide attempt. Stressors include going through a divorce and having to move back into her parents' home with her 2 sons about 6 months ago. She admits that her drinking has created issues in a variety of her relationships and is ready to quit. She notes that due to drinking 1/5th of brien every 2-3 days to self medicate, she wasn't focussing on her health. She wasn't sleeping well (less than 4 hours) and mainly trading calories for alcohol rather than food in the few days leading up to hospitalization. She rates her anxiety as "always high" and feels that she has mood swings--a really good week alternating with "total crap" but denies periods of euphoria, impulsive agitation or increased goal directed activities that would suggest tete. On the medical floor she did experience some delirium in that would awaken as if she was smoking a cigarette or misinterpreted sensory input. Librium was tapered in favor of Neurontin and denies tremor. VSS this am. Past Psychiatric History Current OP Treatment: no current treatment Prior OP Treatment: no prior treatment (though 2 rehab stays) Prior Psych Hospitalizations: none Access to a Gun: No (denied) Suicide Attempts: No Past Medication Trials Prozac--20 mg, was helpful in that lost weight, mood better than now but didn't take consistently Lorazepam or Librium--previously given supply for ?ETOH detox Past Medical/Surgical History History of Concussion/Seizure: No (1) Benign hypertension (2) History of removal of ovarian cyst Allergies Allergies: Coded Allergies: No Known Allergies (Verified , 08/14/16) Home Medications Scheduled Bupropion (Wellbutrin-Xl), 300 MG PO DAILY Folic Acid (Folvite), 1 MG PO DAILY Multivitamin (Multivitamin), 1 TAB PO DAILY Thiamine Hcl (Vitamin B-1), 100 MG PO DAILY [Iud], 1 EA PV UD Family History Diabetes mellitus FH: cancer FH: heart disease Hypertension History of Suicide: No brother schizophrenia Alcohol Use Alcohol Use In Past 12 Months: Yes (a fifth of brien every 2-3 days, 5 days ago) AUDIT Total Score: 23 The patient's AUDIT score suggests problematic drinking (Zone III WHO). Brief intervention was offered and accepted. Intervention (if performed) was greater than 5 min in length. Brief interventions include: 1. Assess Readiness to Quit, 2. Advise: Help Patient to Reduce or Abstain from Alcohol, 3. Agree: Set Specific, Feasible Goals, 4. Assist: Anticipate barriers, Problem-Solving Solutions. Social work to 5. Arrange: Referrals to appropriate treatment. Summary of intervention: The patient is in action stage with regards to transtheoretical model of change. The patient is advised to decrease alcohol consumption due to depressant effects and risk of interactions with prescription medications. The patient agreed to IOP referral and will be provided with recovery materials to continue to education self on how to cope with their condition without drinking. Smoking Use Smoking Status: Current Every Day Smoker patient is not interested in quitting smoking at this time but she was open to tobacco cessation counseling as desires patch/gum here on unit and accepted "myths and facts" worksheet as well as tips, discussion was >5 min in length. Substance History urine tox positive for benzos and MJ. queried [employer], only history 2016 Librium prescription Personal History Lives in: [place] Education: graduated from high school Work History: retail--parttime at 2 stores Relationship History: Children: 2 boys (5 and 10) Legal History: none Psychological Trauma History: Other (denied) Review of Systems Psych: denies symptoms other than stated above Constitutional: fatigue Cardiovascular: denied GI: denied Neurologic: denied Remainder of 10 body systems also reviewed and denied other than noted above. Examination Physical Examination A physical exam was performed in the medical floor prior to admission to the unit. I accept that physical as correct/medical clearance for the inpatient physical exam. Vital Signs Vital Signs Past 12 Hours Date Time Temp Pulse Resp B/P Pulse Ox O2 Delivery O2 Flow Rate FiO2 08/17/16 08:57 36.8 69 18 116/75 08/17/16 06:50 36.5 78 18 131/87 91 129/88 08/17/16 00:32 36.7 72 18 124/80 Laboratory Results ordered fasting glu and lipids for am as metabolic screening. Mental Examination During interview pt is: alert and oriented Appearance: appropriately dressed, appropriately groomed Eye contact is: good Motor behavior is: no abnormal motor movements Speech: normal in rate, rhythm & volume Affect: mood congruent Mood is: depressed, anxious Thought process: clear, coherent Thought content: cognitive distortions Suicidal thought are: denied Homicidal thoughts are: denied Hallucinations: denies auditory, denies visual Cognition: memory grossly intact, attention grossly intact, language grossly intact Intelligence estimated to be: consistent with level of education Insight: limited Judgement: limited Impression / Recommendations Impression 35 yo female with history of depression and ETOH dependence who presents following OD attempt. Inventory Assets Strengths: employed, stable housing, relationship with children Needs: outpatient treatment Risk Factors Assessment : Yes /single/: Yes Substance use disorders: Yes Previous attempt: No Previous psychiatric stay: No Protective Factors Assessment Responsible for young children: Yes Employed: Yes Supportive family: Yes Recommendations (1) Major depressive disorder, recurrent episode with anxious distress 08/17--The patient is admitted to [facility] ([facility]) on q 15 min checks (behavioral with suicide precautions) for safety. The patient will participate in group, recreational and milieu therapies and will be offered additional individual and family sessions as clinically appropriate. She is agreeable to restart Prozac at 20 mg for 2 days and likely increase. Reviewed that benzodiazepines would not be recommended as requesting adjunct for anxiety and risks/benefits/alternatives also reviewed re: Buspar 10 mg BID ( am and afternoon), may increase to TID. (2) EtOH dependence 08/17/16--brief intervention as above, IOP recommended. Continuing Neurontin taper and on AWSS protocol. (3) Nicotine dependence Brief counseling as above. Readdress cessation counseling upon discharge. CPT Code Initial Hospital Care: 28996
[2016-08-17] MEDS: FLUOXETINE HCL 20 MG CAP PO SCH (11:55)
[2016-08-17] MEDS: MAGNESIUM HYDROXIDE SUSP 30 ML UDC PO PRN (15:07)
[2016-08-17] MEDS: hydrOXYzine HCL 25 MG TAB PO PRN (21:19)
[2016-08-18 06:51] VITALS: BP_SYST 107; BP_SYST 110; BP_DIAS 72; BP_DIAS 78; PULSE 77; PULSE 91; TEMP 36.9
[2016-08-18 07:56] LABS: CHOLESTEROL/HDL RATIO 2.1
[2016-08-18 08:38] VITALS: BP 111/79; PULSE 89; TEMP 36.8
[2016-08-18] MEDS: MULTIVITAMIN TAB PO SCH (08:43)
[2016-08-18] MEDS: THIAMINE HCL 100 MG TAB PO SCH (08:44)
[2016-08-18] MEDS: FLUOXETINE HCL 20 MG CAP PO SCH (08:44)
[2016-08-18] MEDS: NICOTINE 7 MG/24 HR TDSY TD SCH (08:47)
[2016-08-18] MEDS ORDERED: GABAPENTIN 400 MG CAP PO SCH (09:00)
--- NOTE | 2016-08-18 10:03 | Psychiatric Progress Notes ---
Progress Note Date of Service Aug 18, 2016. Interval History 35 yo female admitted voluntarily from the medical floor where she had been admitted for alcohol withdrawal and OD in a suicide attempt. Chief Complaint "Better than yesterday.". Subjective Patient was seen & assessed interval progress reviewed with Treatment Team. The patient says that she had "a breakdown" yesterday. She was feeling badly about her drinking and the impact it had on her family, and was having cravings to drink and smoke. She was able to process with staff and felt better in doing so. "I don't want to fail this time", feeling that she failed after her 2 previous rehabs. She says "I reached my bottom" and wants to be able to put alcohol behind her. Her parents drink and so there is alcohol in their home, and she is not sure if they would be willing to remove it while she lives there. Is willing for a family meeting to discuss this. She talked about the relationships in her life that she has lost based on her drinking because "I get crazy, mean" when she drinks. She denies any further SI saying that taking the 33 wellbutrin pills was the only time in her life that she had done that, and was under the influence at the time. She wants to go to [facility], get a sponsor and work on changing her life. Review of Systems Constitutional: No chills, No fatigue, No fever, No problem reported, No sweats , No weakness, No weight loss ENT: No dental problems, No hearing loss, No nasal symptoms, No problem reported, No sore throat, No tinnitus, No trouble swallowing, No unusual epistaxis Respiratory: No cough, No dyspnea at rest, No dyspnea on exertion, No hemoptysis, No problem reported, No shortness of breath, No sputum, No wheezing Cardiovascular: No PND, No chest pain, No claudication, No edema, No orthopnea , No palpitations, No problem reported Abdomen: No GI bleeding, No constipation, No diarrhea, No nausea, No pain, No problem reported, No vomiting Musculoskeletal: No calf pain, No joint pain, No muscle pain, No problem reported, No swelling Neurologic: No balance problems, No memory loss, No numbness/tingling, No paralysis, No problem reported, No vertigo, No weakness Psychiatric: + depression symptoms, + substance abuse (with cravings) Sleep Information Total Hours of Sleep: 7.75 Meal Information Percent of Breakfast Consumed: 100 Percent of Lunch Consumed: 100 Percent of Dinner Consumed: 100 Mental Status Exam During interview pt is: alert and oriented Appearance: appropriately dressed, appropriately groomed Eye contact is: good Motor behavior is: no abnormal motor movements Speech: normal in rate, rhythm & volume Affect: mood congruent Mood is: depressed, anxious Thought process: clear, coherent Thought content: cognitive distortions Suicidal thought are: denied Homicidal thoughts are: denied Hallucinations: denies auditory, denies visual Cognition: memory grossly intact, attention grossly intact, language grossly intact Intelligence estimated to be: consistent with level of education Insight: limited Judgement: limited Impression Patient adjusting to the unit. Is beginning to look at the impact of her alcohol use on her family, and feels motivated to change. Does not want to return to rehab saying that the environment was no good for change, but wants IOP, and will make referral tomorrow. Will need a family meeting with parents as well. Not triggering on AWSS, and feels that the buspar is helping her anxiety to will continue current meds. Plan (1) Major depressive disorder, recurrent episode with anxious distress 08/17--The patient is admitted to [facility] ([facility] mental [facility]) on q 15 min checks (behavioral with suicide precautions) for safety. The patient will participate in group, recreational and milieu therapies and will be offered additional individual and family sessions as clinically appropriate. She is agreeable to restart Prozac at 20 mg for 2 days and likely increase. Reviewed that benzodiazepines would not be recommended as requesting adjunct for anxiety and risks/benefits/alternatives also reviewed re: Buspar 10 mg BID ( am and afternoon), may increase to TID. 42 - Schedule family meeting - Continue current meds (2) EtOH dependence 08/17/16--brief intervention as above, IOP recommended. Continuing Neurontin taper and on AWSS protocol. 08/18 - Recovery protocol - Refer for IOP (3) Nicotine dependence Brief counseling as above. Readdress cessation counseling upon discharge. Discharge / Aftercare Planning Primary Care Physician: Name: Dr. Nuñez Therapist: Name: none Fuller Brush Man: Name: none Visit Code E&M Code: 60236 Inventory Assets Strengths: employed, stable housing, relationship with children Needs: outpatient treatment Risk Factors Assessment : Yes /single/: Yes Substance use disorders: Yes Previous attempt: No Previous psychiatric stay: No Protective Factors Assessment : No Responsible for young children: Yes Employed: Yes Stable relationships: No Supportive family: Yes Data Vital Signs Last 24 Hrs: Date Time Temp Pulse Resp B/P Pulse Ox O2 Delivery O2 Flow Rate FiO2 08/18/16 08:38 36.8 89 18 111/79 08/18/16 06:51 36.9 77 18 107/72 91 110/78 Meds Administered Last 24 Hrs: Meds Administered (Past 24Hrs) Medications (Trade) Dose Ordered Sig/Anju Route Start Time Stop Time Status Last Admin Dose Admin Magnesium Hydroxide (Milk Of Magnesia Susp) 30 ml DAILY PRN PO 08/16/16 18:30 09/15/16 18:29 08/17/16 15:07 30 ML Hydroxyzine HCl (Vistaril Tab) 50 mg HSZ PRN PO 08/16/16 18:30 09/15/16 18:29 08/17/16 21:19 50 MG Folic Acid (Folvite Tab) 1 mg DAILY PO 08/17/16 09:00 09/16/16 08:59 08/18/16 08:43 1 MG Multivitamins (Multivitamin Tab) 1 tab DAILY PO 08/17/16 09:00 09/16/16 08:59 08/18/16 08:43 1 TAB Thiamine HCl (Vitamin B-1 Tab) 100 mg DAILY PO 08/17/16 09:00 09/16/16 08:59 08/18/16 08:44 100 MG Lorazepam (Ativan Tab) 1 mg ONE PRN PO 08/16/16 19:15 08/16/16 20:00 DC 08/16/16 20:00 1 MG Gabapentin (Neurontin Cap) 400 mg TODAY@2200 PO 08/16/16 22:00 08/16/16 22:01 DC 08/16/16 21:10 400 MG Gabapentin (Neurontin Cap) 400 mg Q12H PO 08/17/16 09:00 08/17/16 21:01 DC 08/17/16 21:19 400 MG Gabapentin (Neurontin Cap) 400 mg Q24H PO 08/18/16 09:00 08/18/16 09:01 DC 08/18/16 08:43 400 MG Nicotine (Nicoderm Cq 7 Mg Patch) 1 patch QAM TD 08/17/16 09:00 09/16/16 08:59 08/18/16 08:47 1 PATCH Nicotine (Nicoderm Cq 7 Mg Patch) 1 patch NOW ONCE TD 08/16/16 21:00 08/16/16 21:01 DC 08/16/16 21:11 1 PATCH Fluoxetine HCl (Prozac Cap) 20 mg QAM PO 08/17/16 11:00 09/16/16 10:59 08/18/16 08:44 20 MG Buspirone HCl (Buspar Tab) 10 mg BID17 PO 08/17/16 17:00 09/16/16 16:59 08/18/16 08:43 10 MG Lab Results Last 24 Hrs: Last 24 Hours Test 08/18/16 07:00 Fasting Glucose 100 mg/dl Triglycerides Level 114 mg/dl Cholesterol Level 127 mg/dl HDL Cholesterol 60 mg/dl LDL Cholesterol, Calculated 44 mg/dl VLDL Cholesterol, Calculated 23 mg/dl Cholesterol/HDL Ratio 2.1
[2016-08-18 12:36] VITALS: BP 119/76; PULSE 105; TEMP 36.6
[2016-08-18] MEDS: hydrOXYzine HCL 25 MG TAB PO PRN (21:23)
[2016-08-19 07:02] VITALS: BP_SYST 89; BP_SYST 91; BP_DIAS 58; BP_DIAS 64; PULSE 73; PULSE 88; TEMP 36.6
[2016-08-19] MEDS: THIAMINE HCL 100 MG TAB PO SCH (08:57)
[2016-08-19] MEDS: FLUOXETINE HCL 20 MG CAP PO SCH (08:57)
[2016-08-19] MEDS: MULTIVITAMIN TAB PO SCH (08:57)
[2016-08-19] MEDS: NICOTINE 7 MG/24 HR TDSY TD SCH (08:58)
[2016-08-19 09:02] VITALS: BP 109/76; PULSE 83; TEMP 36.6
[2016-08-19] MEDS: MAGNESIUM HYDROXIDE SUSP 30 ML UDC PO PRN (09:33)
--- NOTE | 2016-08-19 09:40 | Psychiatric Progress Notes ---
Progress Note Date of Service Aug 19, 2016. Interval History 35 yo female admitted voluntarily from the medical floor where she had been admitted for alcohol withdrawal and OD in a suicide attempt. Chief Complaint "I've been great". Subjective Patient was seen & assessed interval progress reviewed with Treatment Team. Staff report she is going to groups and participating, discussing her emotions that are coming out since she's stopped drinking. She is no longer scoring on AWSS. She has a meeting with her parents today and has talked about her difficulties in dealing with her own alcoholism as her parents are alcoholics. She says that her mood has improved throughout the course of her stay, and her withdrawal has resolved. She states that "for the first 2 days, the withdrawal was terrible," and she had shakes, sweats, and hallucinations. She says that she is committed to sobriety, saying "this time I really want to stop drinking, I want to do intensive outpatient and AA." She does not want to go to inpatient rehabilitation, stating that "it's a joke, too many users, not enough alcoholics." She denies suicidal thoughts, stating that her overdose was "just my way of showing everybody I was rock-bottom with my drinking, just didn't know how to stop drinking." She is tearful when discussing the family meeting with her parents that is scheduled for today, stating that she is asked them to stop drinking or to remove alcohol from their home before, and they were never willing to do it. She talked to them about this over the weekend, and states they agreed to take all the alcohol out of the home and to try to support her in her recovery. She states that her children live with them as well, and thinks this is a motivating factor for them in removing the alcohol. She denies any side effects to her current medications, and states that treatment here is helping her. She states that she saw her ENVIRONMENT FRIENDLY LANDSCAPE DESIGNER prior to admission and was diagnosed with bacterial vaginosis and given a prescription for metronidazole, which she did not fill as she was then admitted to the hospital. She continues to have fishy smelling vaginal discharge, and is requesting to take oral metronidazole here. Review of Systems Constipation Sleep Information Total Hours of Sleep: 6.50 Meal Information Percent of Breakfast Consumed: 80 Percent of Lunch Consumed: 100 Percent of Dinner Consumed: 100 Mental Status Exam During interview pt is: alert and oriented, cooperative Appearance: appropriately dressed, appropriately groomed, other (overweight, dressed in pajamas, hair disheveled) Eye contact is: good Motor behavior is: no abnormal motor movements Speech: normal in rate, rhythm & volume Affect: mood congruent, other (full, appropriate, tearful when discussing family meeting) Mood is: anxious (but improved from admission) Thought process: goal directed, clear, coherent Thought content: reality based without delusions Suicidal thought are: denied Homicidal thoughts are: denied Hallucinations: denies auditory, denies visual Cognition: memory grossly intact, attention grossly intact, language grossly intact Intelligence estimated to be: consistent with level of education Insight: limited Judgement: limited Impression Patient adjusting to the unit, participating in treatment, and is beginning to look at the impact of her alcohol use on her family, and feels motivated to change. Does not want to return to rehab saying that the environment was not good for her, but is willing to attend IOP and AA, and will make referrals. She will have a family meeting with parents today as well. Alcohol withdrawal has resolved, she is tolerating fluoxetine and buspar well, and thinks they are helping her anxiety. Plan (1) Major depressive disorder, recurrent episode with anxious distress 08/17--The patient is admitted to [facility] ([facility] unit) on q 15 min checks (behavioral with suicide precautions) for safety. The patient will participate in group, recreational and milieu therapies and will be offered additional individual and family sessions as clinically appropriate. She is agreeable to restart Prozac at 20 mg for 2 days and likely increase. Reviewed that benzodiazepines would not be recommended as requesting adjunct for anxiety and risks/benefits/alternatives also reviewed re: Buspar 10 mg BID ( am and afternoon), may increase to TID. 08/18 - Schedule family meeting - Continue current meds 3 -Family meeting with parents today. -Continue fluoxetine 20 mg daily and buspirone 10 mg 2 times a day. -Refer for outpatient mental health treatment. (2) EtOH dependence 08/17/16--brief intervention as above, IOP recommended. Continuing Neurontin taper and on AWSS protocol. 08/18 - Recovery protocol - Refer for IOP and provide information about local AA meetings. 08/19 - Discuss ways to support sobriety and family meeting. - No longer having alcohol withdrawal symptoms, so will discontinue AWSS protocol. (3) Nicotine dependence Brief counseling as above. Offer nicotine replacement here. Readdress cessation counseling upon discharge. (4) Bacterial vaginosis 08/19 -Diagnosed with bacterial vaginosis by ENVIRON[employer] FRIEN[employer]Y LANDSCAPE DESIGNER prior to admission, and did not fill prescription for metronidazole. Continues to have symptoms here, and is requesting oral metronidazole, so will give a 1 time dose of 2 g today. Will need to follow-up with ENVIRONMENT FRIENDLY LANDSCAPE DESIGNER is recommended after discharge. Discharge / Aftercare Planning Primary Care Physician: Name: Dr. Nuñez Therapist: Name: none Retort Or Condenser Press Operator: Name: none Visit Code E&M Code: 80167 Inventory Assets Strengths: employed, stable housing, relationship with children Needs: outpatient treatment Risk Factors Assessment : Yes /single/: Yes Substance use disorders: Yes Previous attempt: No Previous psychiatric stay: No Protective Factors Assessment : No Responsible for young children: Yes Employed: Yes Stable relationships: No Supportive family: Yes Data Vital Signs Last 24 Hrs: Date Time Temp Pulse Resp B/P Pulse Ox O2 Delivery O2 Flow Rate FiO2 08/19/16 09:02 36.6 83 16 109/76 08/19/16 07:02 36.6 73 18 91/64 88 89/58 08/18/16 12:36 36.6 105 18 119/76 Meds Administered Last 24 Hrs: Meds Administered (Past 24Hrs) Medications (Trade) Dose Ordered Sig/Anju Route Start Time Stop Time Status Last Admin Dose Admin Gabapentin (Neurontin Cap) 400 mg Q24H PO 08/18/16 09:00 08/18/16 09:01 DC 08/18/16 08:43 400 MG Fluoxetine HCl (Prozac Cap) 20 mg QAM PO 08/17/16 11:00 09/16/16 10:59 08/19/16 08:57 20 MG Buspirone HCl (Buspar Tab) 10 mg BID17 PO 08/17/16 17:00 09/16/16 16:59 08/19/16 08:57 10 MG
[2016-08-19] MEDS ORDERED: METRONIDAZOLE 500 MG TAB PO ONE (10:00)
[2016-08-19] MEDS: hydrOXYzine HCL 25 MG TAB PO PRN (21:05)
[2016-08-20 06:46] VITALS: BP_SYST 100; BP_SYST 109; BP_DIAS 66; BP_DIAS 74; PULSE 69; PULSE 79; TEMP 36.8
[2016-08-20] MEDS: MULTIVITAMIN TAB PO SCH (08:06)
[2016-08-20] MEDS: FLUOXETINE HCL 20 MG CAP PO SCH (08:06)
[2016-08-20] MEDS: NICOTINE 7 MG/24 HR TDSY TD SCH (08:07)
[2016-08-20] MEDS: THIAMINE HCL 100 MG TAB PO SCH (08:07)
[2016-08-20] MEDS ORDERED: ATR25 PO (11:27)
[2016-08-20] MEDS ORDERED: FLUO20CA36 PO (11:27)
[2016-08-20] MEDS ORDERED: BUSP-8 PO (11:27)
--- NOTE | 2016-08-20 11:37 | Discharge Instructions ---
Discharge Information Report Includes Report will include the: Discharge Instructions & Summary Admission Admission Date / Time: Aug 16, 2016 at 17:40 Reason for Admission: Depressive Disorder Nos Discharge Discharge Diagnosis / Problem: Alcohol dependence, depression Condition at Discharge: Good Discharge Goals Goal(s): Decrease discomfort, Improve disease control, Prevent Disease Progression Activity Recommendations Activity Limitations: resume your previous activity . Instructions / Follow-Up Instructions / Follow-Up . SPECIAL CARE INSTRUCTIONS: 1. Follow through with your scheduled aftercare appointments. If unable to keep an appointment, please call to reschedule. 2. Take your medication only as prescribed. Medication should not be changed or stopped without the approval of your doctor. In the event of worsening symptoms or concerns about side effects, contact your doctor immediately. 3. Utilize new healthy coping skills, anger management skills, and stress management skills learned during your hospitalization. Journal feelings and process them with a support person. Identify stressors or situations that may result in relapse, deterioration or inappropriate behaviors and develop a plan to deal with those issues. 4. If your coping skills are ineffective and you are in crisis, contact your outpatient providers for direction. If unable to reach your providers, please call the CAN HELP LINE AT or go to the closest Emergency Room. 5. Avoid alcohol and un-prescribed drugs. 6. You have been provided with the Mental Health Advance Directives Pamphlet for your review. AFTERCARE APPOINTMENTS: * Please call your insurance company prior to your scheduled appointment to confirm your aftercare providers are covered. Take your insurance information to your appointments. . Discharge / Aftercare Planning Primary Care Physician: Name: Dr. Nuñez Phone Number: Appointment Notes: as needed Psychiatrist: Name: referral pending through [facility]- pt must be invested in tx Phone Number: [phone] Date of Appointment: Sep 05, 2016 Time of Appointment: 1130 Appointment Notes: intake at [address] [place] [address] (above [facility]) Therapist: Name Of Therapist: [facility] intake Phone Number: [phone] Date of Appointment: Sep 05, 2016 Time of Appointment: 1130 Manager Placement: Name: none Other: Name of Appointment #1: [facility] -IOP Intake Phone Number: [phone] Date of Appointment #1: Sep 05, 2016 Time of Appointment #1: 1130 . Follow-Up Care Plan for Follow-Up Care: the patient will be referred to [facility] for [facility] including therapy and psychiatry Current Hospital Diet Patient's current hospital diet: Regular Diet Discharge Diet Recommended Diet: Regular Diet Procedures Procedures Performed: No Pending Studies Pending Studies at Discharge: No Medical Emergencies . Who to Call and When: Medical Emergencies: For questions or emergencies related to your hospital stay, please contact the Inpatient Behavioral Health Unit at [phone]. A interface analyst is on-call 09/12 for the Behavioral Health Unit for emergencies At any time you feel your situation is an emergency, you may also call 911 immediately. . Non-Emergent Contact Non-Emergency issues call your: Primary Care Provider, Psychiatrist, Therapist Advance Directives Do You Have an Existing Mental: No Existing Living Will: No Existing Power of Pain Medicine Physician: No Advance Directives Info Given: To Pt/S.O. Advance Directives Reason: Declines as Mental Health Visit. Discharge Summary Admission HPI Per the Admitting provider: Kaleigh presented to the ED on 08/14/16 after taking 33 Wellbutrin over the course of a few day and "other pills" as a suicide attempt. Stressors include going through a divorce and having to move back into her parents' home with her 2 sons about 6 months ago. She admits that her drinking has created issues in a variety of her relationships and is ready to quit. She notes that due to drinking 1/5th of brien every 2-3 days to self medicate, she wasn't focussing on her health. She wasn't sleeping well (less than 4 hours) and mainly trading calories for alcohol rather than food in the few days leading up to hospitalization. She rates her anxiety as "always high" and feels that she has mood swings--a really good week alternating with "total crap" but denies periods of euphoria, impulsive agitation or increased goal directed activities that would suggest tete. On the medical floor she did experience some delirium in that would awaken as if she was smoking a cigarette or misinterpreted sensory input. Librium was tapered in favor of Neurontin and denies tremor. VSS this am. Hospital Course (1) Major depressive disorder, recurrent episode with anxious distress 08/17--The patient is admitted to [facility] (locked inpatient mental health unit) on q 15 min checks (behavioral with suicide precautions) for safety. The patient will participate in group, recreational and milieu therapies and will be offered additional individual and family sessions as clinically appropriate. She is agreeable to restart Prozac at 20 mg for 2 days and likely increase. Reviewed that benzodiazepines would not be recommended as requesting adjunct for anxiety and risks/benefits/alternatives also reviewed re: Buspar 10 mg BID ( am and afternoon), may increase to TID. 08/18 - Schedule family meeting - Continue current meds 08/19 -Family meeting with parents today. -Continue fluoxetine 20 mg daily and buspirone 10 mg 2 times a day. -Refer for outpatient mental health treatment. (2) EtOH dependence 08/17/16--brief intervention as above, IOP recommended. Continuing Neurontin taper and on AWSS protocol. 08/18 - Recovery protocol - Refer for IOP and provide information about local AA meetings. 08/19 - Discuss ways to support sobriety and family meeting. - No longer having alcohol withdrawal symptoms, so will discontinue AWSS protocol. (3) Nicotine dependence Brief counseling as above. Offer nicotine replacement here. Readdress cessation counseling upon discharge. (4) Bacterial vaginosis 08/19 -Diagnosed with bacterial vaginosis by [facility] prior to admission, and did not fill prescription for metronidazole. Continues to have symptoms here, and is requesting oral metronidazole, so will give a 1 time dose of 2 g today. Will need to follow-up with [facility] is recommended after discharge. Risk Factors Assessment : Yes /single/: Yes Substance use disorders: Yes Previous attempt: No Previous psychiatric stay: No Protective Factors Assessment : No Responsible for young children: Yes Employed: Yes Stable relationships: No Supportive family: Yes Day of Discharge Assessment COURSE OF HOSPITALIZATION: The patient is a 35-year-old woman with known dependence, who was initially admitted to the medical floor for alcohol withdrawal. She was cleared and brought to mental health after that. She remained on RAMSEY S protocol for alcohol withdrawal but triggered very little. This was eventually discontinued. She did have cravings throughout her stay, especially when under stress. She denied that she was having any further suicidal thoughts and says that she only has those when she is under the influence of alcohol and she only overdosed on medicines once and that was prior to admission. She had a family meeting with her parents, with whom she lives, and all are agreed to support her in her desire for sobriety. Patient's parents are willing to remove alcohol from the home and lock it up in a shed. The patient feels like she is finally at a point where she wants to conquer her dependence and remain sober and feels that this is very different from the 2 times she had previously gone to rehabilitation. She was struggling during her stay, to realize the impact that her alcoholism has had on her own children and her parents and her relationships with peers. She is agreeable to doing 90 meetings in 90 days and to participate in an intensive outpatient program. She declined rehabilitation, saying that the last 2 times she was there was not a productive environment. DAY OF DISCHARGE ASSESSMENT: Today the patient is requesting discharge. She feels that remaining in the hospital will not benefit her any more, that she has learned some additional coping strategies and would like to go home and put them in place. She [facility] and able to return home to care for her children. She feels good about the support that she is getting from her parents, but recognizes that the work is all hers. She continues to deny suicidal or homicidal ideation, and has no further symptoms of alcohol withdrawal other than cravings. We did discuss the use of naltrexone to treat cravings for alcohol and it was suggested that she take this up with her outpatient psychiatrist. Today she is casually and appropriately dressed and groomed. Gait and station are within normal limits. Eye contact is good. Affect is restricted but able to smile. Speech is of normal rate volume and tone. Thoughts are organized and goal-directed, without evidence of thought disorder. Recent and remote memory are intact per conversation. Intelligence is estimated to be average. Insight and judgment are improved over admission. Laboratory Test 08/18/16 07:00 Fasting Glucose 100 Triglycerides Level 114 Cholesterol Level 127 HDL Cholesterol 60 LDL Cholesterol, Calculated 44 VLDL Cholesterol, Calculated 23 Cholesterol/HDL Ratio 2.1 Total Time Total Time Spent (min): Greater than 30 minutes Total Time Included: examination of the patient, discharge planning, medication reconciliation, communication with other providers Tobacco Cessation at Discharge Smoking Status: Current Every Day Smoker FDA approved Prescription: declined med & out pt counseling
[2016-08-20] MEDS ORDERED: DESTROY THIS MEDICATION ONE (12:30)
== END 2016-08-20 12:40 | disposition home or self-care (01) | DRG 885 ==
LOC: C.MHU 17:40
PROVIDERS: ADMIT Psychiatry & Neurology Child & Adolescent Psychiatry; ATTEND Psychiatry & Neurology Psychiatry
DX: F33.9 Major depressive disorder, recurrent, unspecified (principal); F10.24 Alcohol dependence with alcohol-induced mood disorder; F10.239 Alcohol dependence with withdrawal, unspecified; I10 Essential (primary) hypertension; Z83.3 Family history of diabetes mellitus; F17.200 Nicotine dependence, unspecified, uncomplicated; N76.0 Acute vaginitis; F41.9 Anxiety disorder, unspecified; B96.89 Other specified bacterial agents as the cause of diseases classified elsewhere

== ENCOUNTER 2017-04-29 21:58 | Emergency (ER) | payer OTHER ==
[~2017-04-29] VITALS: Ht 175.3 cm; Wt 88.0 kg
[~2017-04-29 21:58] MED LIST changes: -IUD'IUD INT UTER
[2017-04-29 22:28] VITALS: Ht 175.3 cm; Wt 88.0 kg
[2017-04-29 22:48] LABS: CALCIUM 9.4 mg/dl (8.5-10.1); CREATININE 0.77 mg/dl (0.60-1.20); POTASSIUM 4.1 mmol/L (3.5-5.1)
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
[2017-04-29] MEDS ORDERED: IUD'IUD INT UTER (23:07)
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
[2017-04-29] MEDS ORDERED: OPTIRAY 320 IV PRN (23:45)
[2017-04-30 00:06] LABS: BASO % 0.7 %; BASO ABS # 0.05 K/uL (0-0.2); COMPLETE YES; EOS % 1.3 %; HEMATOCRIT 48.3 % (37-47); IG% 0.1 %; LYMPH % 34.2 %; LYMPH ABS # 2.54 K/uL (1.2-3.4); MEAN CELL VOLUME 94.7 fL (80-100); MEAN CORPUSCULAR HEMOGLOBIN 33.1 pg (25-34); MEAN PLATELET VOLUME 10.4 fL (7.4-10.4); MONO % 7.3 %; NEUT % 56.4 %; PLATELET COUNT 286 K/uL (130-400); WHITE BLOOD COUNT 7.42 K/uL (4.8-10.8)
[2017-04-30 00:30] LABS: PREG INTERNAL NEGATIVE QC NEG CLEAR BACKGROUND; PREG INTERNAL POSITIVE QC POS CONTROL LINE
[2017-04-30] MEDS ORDERED: ACETAMINOPHEN 500 MG TAB PO STA (00:53)
[2017-04-30 02:13] VITALS: BP 124/105; PULSE 98; TEMP 36.1; O2SAT 98
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
== END 2017-04-30 02:16 | disposition home or self-care (01) ==
LOC: EDBD 21:58 → C.EDA 22:01
DX: F10.10 Alcohol abuse, uncomplicated (principal); S40.812A Abrasion of left upper arm, initial encounter; S12.500A Unspecified displaced fracture of sixth cervical vertebra, initial encounter for closed fracture; S12.600A Unspecified displaced fracture of seventh cervical vertebra, initial encounter for closed fracture; V48.3XXA Unspecified car occupant injured in noncollision transport accident in nontraffic accident, initial encounter; Y93.89 Activity, other specified; Y99.8 Other external cause status; I10 Essential (primary) hypertension; F17.200 Nicotine dependence, unspecified, uncomplicated; Z87.442 Personal history of urinary calculi; Z98.890 Other specified postprocedural states; Z83.3 Family history of diabetes mellitus; Z82.49 Family history of ischemic heart disease and other diseases of the circulatory system

== ENCOUNTER → 2017-04-29 | Outpatient (CLI) | payer OTHER ==
[~2017-04-29] MED LIST changes: +ATR25 PO; +BUSP-8 PO; +FLUO20CA36 PO; -FLV1 PO; +FOLI1TAB8 PO; +IUD'IUD INT UTER; +MULT-506 PO; -MULT-589 PO; +THIA100T11 PO; -THM100 PO
== END | disposition home or self-care (01) ==
LOC: C.LAB 22:04
DX: Z02.83 Encounter for blood-alcohol and blood-drug test (principal)

== ENCOUNTER 2017-05-24 21:38 | Emergency (ER) | payer OTHER ==
[~2017-05-24] VITALS: Ht 177.8 cm; Wt 84.0 kg
[~2017-05-24 21:38] MED LIST changes: -ATR25 PO; -BUSP-8 PO; -FLUO20CA36 PO; -FOLI1TAB8 PO; -IUD PV; +IUD'IUD INT UTER; -MULT-506 PO; -THIA100T11 PO
[2017-05-24 21:51] VITALS: TEMP 37.7; Ht 177.8 cm; Wt 84.0 kg
[2017-05-24 23:03] LABS: BASO % 0.4 %; BASO ABS # 0.03 K/uL (0-0.2); EOS ABS # 0.08 K/uL (0-0.5); HEMATOCRIT 44.4 % (37-47); HEMOGLOBIN 15.4 g/dL (12.0-16.0); IG# 0.01 K/uL (0.00-0.02); LYMPH % 33.5 %; MEAN CELL VOLUME 94.1 fL (80-100); MEAN CORPUSCULAR HEMOGLOBIN 32.6 pg (25-34); MEAN CORPUSCULAR HGB CONC 34.7 g/dl (32-36); MEAN PLATELET VOLUME 10.5 fL (7.4-10.4); MONO % 9.8 %; MONO ABS # 0.82 K/uL (0.11-0.59); NEUT % 55.2 %; NEUT ABS # 4.63 K/uL (1.4-6.5); PLATELET COUNT 256 K/uL (130-400); RED CELL DISTRIBUTION WIDTH CV 13.1 % (11.5-14.5); RED CELL DISTRIBUTION WIDTH SD 45.2 fL (36.4-46.3); WHITE BLOOD COUNT 8.37 K/uL (4.8-10.8)
[2017-05-24 23:29] LABS: ALBUMIN 4.1 gm/dl (3.4-5.0); CALCIUM 8.5 mg/dl (8.5-10.1); CREATININE 0.94 mg/dl (0.60-1.20)
[2017-05-24] MEDS ORDERED: LORAZEPAM 2 MG/ML 1 ML VIAL IM STA (23:30)
[2017-05-24] MEDS ORDERED: HALOPERIDOL LACTATE 5 MG/ML 1 ML VIAL IM STA (23:30)
[2017-05-24 23:37] LABS: TOTAL PROTEIN 7.9 gm/dl (6.4-8.2)
--- NOTE | 2017-05-25 00:15 | EMERGENCY ROOM VISIT NOTE ---
History Report prepared by Vanessaibjason: Felice Saleh Under the Supervision of: Dr. John Cross D.O. First contact with patient: 21:45 Chief Complaint: MENTAL HEALTH EVALUATION Stated Complaint: mhmr History of Present Illness The patient is a 36 year old female who presents to the Emergency Room via police with complaints of agitation . Patient states she has a history of alcoholism. She states she was drinking tonight at her parents. She denies drinking and driving tonight. She denies having any current suicidal ideations. Per nurse, the patient was trying to get into her aunt's house prior to arrival. Nurse states that the patient's mother then called the police on her. Nurse adds that there appears to be financial issues between the patient and her aunt and uncle. Patient states that her uncle's car dealership asked her for 60k dollars because "they know she has money". Source of History: patient Onset: Prior to arrival Position: other (Global) Timing: worsening Modifying Factors (Relieving): other (None) Note: Patient denies suicidal ideations. Review of Systems See HPI for pertinent positives & negatives. A total of 10 systems reviewed and were otherwise negative. Past Medical & Surgical Medical Problems: (1) Alcohol addiction (2) Alcohol withdrawal (3) Bacterial vaginosis (4) Benign Hypertension (5) Benign hypertension (6) Calculus Of Kidney (7) EtOH dependence (8) Major depressive disorder, recurrent episode with anxious distress (9) Nicotine dependence (10) Ovarian Cyst Nec/Nos (11) Overdose Surgical Problems: (1) History of removal of ovarian cyst Family History Diabetes mellitus FH: cancer FH: heart disease Hypertension Social History Smoking Status: Current Every Day Smoker Alcohol Use: none Drug Use: none Housing Status: lives with family Occupation Status: employed Current/Historical Medications Unable to Obtain Active Prescriptions or Reported Meds Allergies Coded Allergies: No Known Allergies (Verified , 04/29/17) Physical Exam Vital Signs Date Time Temp Pulse Resp B/P (MAP) Pulse Ox O2 Delivery O2 Flow Rate FiO2 05/25/17 00:59 98 20 137/87 97 Room Air 05/24/17 22:36 122 05/24/17 21:51 37.7 107 22 135/94 98 Room Air Physical Exam CONSTITUTIONAL/VITAL SIGNS: Reviewed / noted above. GENERAL: Non-toxic in appearance. Smell of alcohol on the breath. INTEGUMENTARY: Warm, dry, and [place]. HEAD: Normocephalic. EYES: without scleral icterus or trauma. ENT/OROPHARYNX: clear and moist. LYMPHADENOPATHY/NECK: Is supple without lymphadenopathy or meningismus. RESPIRATORY: Lungs clear and equal. CARDIOVASCULAR: Regular rate and rhythm. GI/ABDOMEN: Soft and nontender. No organomegaly or pulsatile mass. No rebound or guarding. Normal bowel sounds. EXTREMITIES: Warm and well perfused. BACK: No CVA tenderness. NEUROLOGICAL: Intact without focal deficits. PSYCHIATRIC: Agitated and uncooperative. Patient denies suicidal ideations. MUSCULOSKELETAL: Normally developed with good muscle tone. Medical Decision & Procedures Laboratory Results 05/24/17 22:49 Red Blood Count 4.72, Mean Corpuscular Volume 94.1, Mean Corpuscular Hemoglobin 32.6, Mean Corpuscular Hemoglobin Concent 34.7, Mean Platelet Volume 10.5, Neutrophils (%) (Auto) 55.2, Lymphocytes (%) (Auto) 33.5, Monocytes (%) (Auto) 9.8, Eosinophils (%) (Auto) 1.0, Basophils (%) (Auto) 0.4, Neutrophils # (Auto) 4.63, Lymphocytes # (Auto) 2.80, Monocytes # (Auto) 0.82, Eosinophils # (Auto) 0.08, Basophils # (Auto) 0.03 05/24/17 22:49 Test 05/24/17 22:49 White Blood Count 8.37 K/uL (4.8-10.8) Red Blood Count 4.72 M/uL (4.2-5.4) Hemoglobin 15.4 g/dL (12.0-16.0) Hematocrit 44.4 % (37-47) Mean Corpuscular Volume 94.1 fL (80-100) Mean Corpuscular Hemoglobin 32.6 pg (25-34) Mean Corpuscular Hemoglobin Concent 34.7 g/dl (32-36) Platelet Count 256 K/uL (130-400) Mean Platelet Volume 10.5 fL (7.4-10.4) Neutrophils (%) (Auto) 55.2 % Lymphocytes (%) (Auto) 33.5 % Monocytes (%) (Auto) 9.8 % Eosinophils (%) (Auto) 1.0 % Basophils (%) (Auto) 0.4 % Neutrophils # (Auto) 4.63 K/uL (1.4-6.5) Lymphocytes # (Auto) 2.80 K/uL (1.2-3.4) Monocytes # (Auto) 0.82 K/uL (0.11-0.59) Eosinophils # (Auto) 0.08 K/uL (0-0.5) Basophils # (Auto) 0.03 K/uL (0-0.2) RDW Standard Deviation 45.2 fL (36.4-46.3) RDW Coefficient of Variation 13.1 % (11.5-14.5) Immature Granulocyte % (Auto) 0.1 % Immature Granulocyte # (Auto) 0.01 K/uL (0.00-0.02) Anion Gap 14.0 mmol/L (3-11) Est Creatinine Clear Calc Drug Dose 98.5 ml/min Estimated GFR () 91.1 Estimated GFR (Non- 78.6 BUN/Creatinine Ratio 7.9 (10-20) Calcium Level 8.5 mg/dl (8.5-10.1) Total Bilirubin 0.7 mg/dl (0.2-1) Aspartate Amino Transf (AST/SGOT) 23 U/L (15-37) Alanine Aminotransferase (ALT/SGPT) 18 U/L (12-78) Alkaline Phosphatase 46 U/L (45-117) Total Protein 7.9 gm/dl (6.4-8.2) Albumin 4.1 gm/dl (3.4-5.0) Globulin 3.8 gm/dl (2.5-4.0) Albumin/Globulin Ratio 1.1 (0.9-2) Thyroid Stimulating Hormone (TSH) 1.070 uIu/ml (0.300-4.500) Salicylates Level < 1.7 mg/dl (2.8-20) Acetaminophen Level < 2 ug/ml (10-30) Ethyl Alcohol mg/dL 261.0 mg/dl (0-3) Laboratory results as stated above per my review. ED Course 0: Previous medical records were reviewed. The patient was evaluated in room A8. A complete history and physical examination was performed. 2330: Haldol Inj 5mg IM, Ativan Inj 2mg IM 0030: On reevaluation, the patient is resting comfortably. I discussed the results and findings with the patient. She verbalized agreement of the treatment plan. She was discharged home. Medical Decision differential includes toxic ingestions, self-mutilation, suicidal ideation, suicide attempt, depression. The patient is a 36-year-old female who presents to the emergency department via police. The patient reports that she had been drinking tonight with her family. She states that she and her family started arguing. She states they were arguing over money. The patient was brought here by police and was in the outpatient area to have blood work drawn for DUI. The patient states that she was not driving. Because she was agitated, they dropped her off and the psych area. She denies being suicidal or homicidal. She admits to drinking alcohol tonight. The patient had some paperwork filled out by her mother or other relatives who stated that she was going to harm herself. Can help already evaluated the position and declined to support it. Patient's blood work does reveal alcohol intoxication. The patient was felt to be stable for discharge. She will be discharged with a sober ride. Her mom picked her up. Medication Reconcilliation Current Medication List: was personally reviewed by me Blood Pressure Screening Patient's blood pressure: Normal blood pressure Blood pressure disposition: Did not require urgent referral Impression Primary Impression: Alcohol intoxication Scribe Attestation The scribe's documentation has been prepared under my direction and personally reviewed by me in its entirety. I confirm that the note above accurately reflects all work, treatment, procedures, and medical decision making performed by me. Departure Information Dispostion Home / Self-Care Prescriptions Unable to Obtain Active Prescriptions or Reported Meds Referrals No Doctor, Assigned (PCP) Forms HOME CARE DOCUMENTATION FORM, IMPORTANT VISIT INFORMATION Patient Instructions Alcohol Intoxication - [facility], My [facility] Additional Instructions Avoid alcohol consumption.
[2017-05-25 00:59] VITALS: BP 137/87; PULSE 98; O2SAT 97
== END 2017-05-25 01:15 | disposition home or self-care (01) ==
LOC: EDBD 21:38 → C.EDA 21:40
DX: F10.129 Alcohol abuse with intoxication, unspecified (principal); I10 Essential (primary) hypertension; F17.200 Nicotine dependence, unspecified, uncomplicated; Z83.3 Family history of diabetes mellitus; Z80.9 Family history of malignant neoplasm, unspecified; Z82.49 Family history of ischemic heart disease and other diseases of the circulatory system

== ENCOUNTER → 2017-07-09 | Outpatient (CLI) | payer OTHER ==
--- NOTE | 2017-07-09 11:53 | DIAGNOSTIC IMAGING REPORT ---
SMALL BOWEL STUDY CLINICAL HISTORY: Constipation. Abnormal CT scan. COMPARISON STUDY: CT of the abdomen and pelvis April 29, 2017. FLUOROSCOPY TIME: 0.6 minutes. TECHNIQUE: A heel gummer KUB was obtained. A small bowel follow-through was then performed utilizing Gastrografin as ordered. FINDINGS: Bowel gas pattern is normal. Intrauterine device is noted. Mucosal detail is diminished given Gastrografin. However, the caliber of the jejunum and ileum are normal. No mucosal abnormality is identified. The terminal ileum is not well visualized on this exam. The left upper quadrant jejunal intussusception shown on CT of May 04, 2017 is not visualized on this exam and was likely transient. Transit time to the cecum was normal at 40 minutes. IMPRESSION: 1. Unremarkable Gastrografin small bowel follow-through. 2. Nonvisualization of the left upper quadrant jejunal intussusception shown on prior CT which was likely transient. Diminished mucosal detail given Gastrografin. Electronically signed by: Kyree Rodriguez M.D. 07/09/2017 11:52 AM Dictated Date/Time: 07/09/2017 11:50 AM
== END | disposition home or self-care (01) ==
LOC: C.RAD 10:13
PROVIDERS: ATTEND Nurse Practitioner Family
DX: K59.00 Constipation, unspecified (principal); K56.1 Intussusception

== ENCOUNTER → 2017-12-24 | Outpatient (CLI) | payer OTHER | END | disposition home or self-care (01) | LOC: C.LABSPEC 17:56 | PROVIDERS: ATTEND Obstetrics & Gynecology | DX: Z11.3 Encounter for screening for infections with a predominantly sexual mode of transmission (principal); N89.8 Other specified noninflammatory disorders of vagina; R30.0 Dysuria ==

== ENCOUNTER → 2017-12-24 | Outpatient (CLI) | payer OTHER | END | disposition home or self-care (01) | LOC: C.PAPS 17:44 | PROVIDERS: ATTEND Obstetrics & Gynecology | DX: N93.9 Abnormal uterine and vaginal bleeding, unspecified (principal) ==